=== PATIENT | female | born 1950 | race Caucasian/White ===

== ENCOUNTER 2019-11-29 12:26 | Inpatient (IN) | payer MEDICARE ==
[~2019-11-29] VITALS: Ht 167.7 cm; Wt 100.4 kg
[2019-11-29] MEDS ORDERED: ACETAMINOPHEN 500 MG TAB (TYLENOL) PO PRN (12:30)
[2019-11-29] MEDS ORDERED: ALPRAZolam 0.25 MG (XANAX) TAB PO PRN (12:30)
[2019-11-29] MEDS ORDERED: LACTULOSE SYRUP 10GM/15ML (ENULOSE) 30ML UDC PO PRN (12:30)
[2019-11-29] MEDS ORDERED: diphenhydrAMINE 25 MG TAB (BENADRYL) PO PRN (12:30)
[2019-11-29] MEDS ORDERED: BISACODYL 10 MG SUPP (DULCOLAX) PR PRN (12:30)
[2019-11-29] MEDS ORDERED: ONDANSETRON 4 MG (ZOFRAN) ORAL DISSOLVE TAB PO PRN (12:30)
[2019-11-29] MEDS ORDERED: DOCUSATE SODIUM 100 MG (COLACE) CAP PO PRN (12:30)
[2019-11-29] MEDS ORDERED: guaiFENesin/CODEINE (ROBITUSSIN AC) 10ML UDC PO PRN (12:30)
[2019-11-29] MEDS ORDERED: FLEET ENEMA ADULT 1 EA BTL PR PRN (12:30)
[2019-11-29] MEDS ORDERED: CALCIUM CARBONATE 500 MG (TUMS) TAB.CHEW PO PRN (12:30)
[2019-11-29] MEDS ORDERED: LOPERAMIDE 2 MG (IMODIUM) TABLET PO PRN (12:30)
--- NOTE | 2019-11-29 13:00 | NUR ---
SRIKANTH NORIEGA admitted to room 228-1, with an admitting diagnosis of CVA, on 11/29/19 from [place] [facility] via PRIVATE VEHICLE, accompanied by FAMILY. SRIKANTH NORIEGA introduced to surroundings, call light, bed controls, phone, TV, temperature control, lights, meal times, smoking policy, visitor policy, side rail policy, bathrooms and showers. Patient Rights given to patient in the handbook. SRIKANTH NORIEGA verbalizes understanding that [facility] is not responsible for the loss or damage to any personal effects or valuables that are kept in the patient's possession during their hospitalization. The following Patient Care Plans were discussed with the PATIENT: Discharge Planning, ALTERED CEREBRAL TISSUE PERFUSION, INEFFECTIVE AIRWAY CLEARANCE, IMPAIRED MOBILITY, UNILATERAL NEGLECT, SELF CARE DEFICIT, IMPAIRED COMMUNICATION, HIGH RISK: ASPIRATION, KNOWLEDGE DEFICIT: CVA, and DYSPHAGIA. SRIKANTH NORIEGA verbalizes understanding of Interdisciplinary Patient Education. Patient received Patient Rights Booklet, which includes Privacy Act Statement and Data Collection Information Summary.
[2019-11-29] MEDS ORDERED: SOTA80TA62 PO (13:18)
[2019-11-29] MEDS ORDERED: ATOR40TA70 PO (13:18)
[2019-11-29] MEDS ORDERED: ASPI-1238 PO (13:18)
[2019-11-29] MEDS ORDERED: OMEG1CAP24 PO (13:18)
[2019-11-29] MEDS ORDERED: VIT1CAPS46 PO (13:18)
[2019-11-29] MEDS ORDERED: LISI10TA2 PO (13:18)
[2019-11-29 14:58] VITALS: BP 154/63
--- NOTE | 2019-11-29 15:02 | Physical Therapy Evaluation ---
PT Evaluation-General Medical Diagnosis Admission Date Nov 29, 2019 at 13:13 Medical Diagnosis: CVA Onset Date: Nov 22, 2019 Therapy Diagnosis Therapy Diagnosis: Impaired mobility, balance , endurance. Weight Bear Status Full Weight Bearing Full Weight Bearing Referral Physician: Zoraida Hong DO Reason for Referral: Evaluation/Treatment Medical History Additional Medical History PMH: PAF, acute ischemic stroke, HTN, RA PSH: Breast reduction surgery(1998), Broken leg with karli placement(2000) Reviewed History: Yes Social History Home: Multilevel (bed, bath, and kitchen on main floor) Current Living Status: Spouse PT Steps Into Home: 2 Unclear on amount of stair inside home. Possible walk out basement in home, but pt does not access basement on regular basis. Prior Prior Level of Function SCALE: Activities may be completed with or without assistive devices. 2-Lfoglzenym-tcyzppk completes the activity by him/herself with no assistance from a helper. 5-Set-up or Clean-up Assistance-helper sets up or cleans up; patient completes activity. [place] assists only prior to or following the activity. 4-Supervision or Touching Assistance-helper provides verbal cues and/or touching/steadying and/or contact guard assistance as patient completes activity. Assistance may be provided throughout the activity or intermittently. 3-Partial/Moderate Assistance-helper does LESS THAN HALF the effort. [place] lifts, holds or supports trunk or limbs, but provides less than half the effort. 2-Substantial/Maximal Assistance-helper does MORE THAN HALF the effort. [place] lifts or holds trunk or limbs and provides more than half the effort. 4-Vtxsjjifa-ghofaq does ALL the effort. Patient does none of the effort to complete the activity. Or, the assistance of 2 or more helpers is required for the patient to complete the activity. If activity was not attempted, code reason: 7-Patient Refused. 9-Not Applicable-not attempted and the patient did not perform the activity before the current illness, exacerbation or injury. 10-Not Attempted due to Environmental Limitations-(lack of equipment, weather restraints, etc.). 88-Not Attempted due to Medical Conditions or Safety Concerns. Bed Mobility: 6 Transfers (B,C,W/C): 6 Gait: 6 Stairs: 6 Wheelchair Mobility: 9 Indoor Mobility (Ambulation): Independent Stairs: Independent Prior Devices Use: None PT Evaluation-Current Subjective Pt present upright in recliner in room. Pt agrees to PT. Pt reports no pain. Pt/Family Goals Return to home Objective Patient Orientation: Person, Unable to Assess (aphasia), Eyes Open, [place] ROM/Strength ROM Lower Extremities WFL Strength Lower Extremities Gross B LE 5/5 except for left hip flexion (4/5) Sensory Vision: Functional Hearing: Functional Sensation Right Lower Extremit: Intact Sensation Left Lower Extremity: Intact Sensation Lower Extremities Pt reports feeling light touch B L2-S2. Transfers Roll Left to Right (QC): 6 Sit to Lying (QC): 6 Lying to Sitting/Side of Bed(Q: 6 Sit to Stand (QC): 6 Chair/Xwa-oa-Cbhik Xfer(QC): 6 Toilet Transfer (QC): 6 Car Transfer (QC): 4 Gait Does the Patient Walk?: Yes Mode of Locomotion: Walk Anticipated Mode of Locomotion: Walk Walk 10 feet (QC): 6 Walk 50 ft with 2 Turns(QC): 6 Walk 150 ft (QC): 4 Walking 10ft/uneven surface-QC: 4 Gait Assistive Device: None Comments/Gait Description Pt able to walk without AD or LOB. Pt given verbal cues on directions as where to go. Wheelchair Training Does the Pt Use a Wheelchair?: No Wheel 50 ft with 2 turns (QC): 9 Wheel 150 ft (QC): 9 Stairs #of Steps: 4 1 Step (curb) (QC): 4 4 Steps (QC): 4 12 Steps (QC): 88 Balance Sitting Static: Normal Sitting Dynamic: Normal Standing Static: Normal Standing Dynamic: Good Picking up an Object (QC): 4 Treatment Co-treated with OT due to limitation in balance, endurance, coordinating UE and LE movements, and communication, to work on balance activities while also working on another activity involving critical thinking and digital manipulatio n. Standing marches x20; dynamic standing with balloon taps; static standing with cognitive games. Garcia Balance Scale score 54/56. Assessment/Needs Pt limited in dynamic balance. Pt acts with impulse before listening for full directions. Pt struggles with communicating responses but seems to understand most directions. Rehab Potential: Fair PT Short Term Goals Short Term Goals Time Frame: Dec 06, 2019 Roll Left & Right: 6 Sit to lyin Lying to sitting on side of be: 6 Sit to stand: 6 Chair/esk-jz-rkaps transfer: 6 Toilet transfer: 6 Car transfer: 5 Walk 10 feet: 5 Walk 50 feet with two turns: 5 Walk 150 feet: 5 1 step (curb): 5 4 steps: 5 PT Heat Treat Inspector Goals Prison Goals PT Prison Goals Time Frame: Dec 13, 2019 Roll Left & Right (QC): 6 Sit to Lying (QC): 6 Lying-Sitting on Side/Bed(QC): 6 Sit to Stand (QC): 6 Chair/Rrb-xg-Pmqep Xfer(QC): 6 Toilet Transfer (QC): 6 Car Transfer (QC): 6 Does the Patient Walk: Yes Walk 10 feet (QC): 6 Walk 50ft with 2 Turns (QC): 6 Walk 150 ft (QC): 6 Walking 10ft on Uneven Surface: 6 1 Step (curb) (QC): 6 4 Steps (QC): 6 12 Steps (QC): 6 Picking up an Object (QC): 6 Does the Pt use WC or Scooter?: No Wheel 50 feet with 2 turns (QC: 9 Wheel 150 feet: 9 PT Plan Problem List Problem List: Activity Tolerance, Functional Strength, Safety, Balance, Gait, Transfer, ROM Treatment/Plan Treatment Plan: Continue Plan of Care Treatment Plan: Education, Functional Activity [place], Functional Strength, Gait, Safety, Therapeutic Exercise, Transfers Treatment Duration: Dec 13, 2019 Frequency: At least 5 of 7 days/Wk (IRF) Estimated Hrs Per Day: 1 hour per day Patient and/or Family Agrees t: Yes Safety Risks/Education Patient Education: Gait Training, Transfer Techniques, Steps, Correct Positioning, Safety Issues Teaching Recipient: Patient Teaching Methods: Demonstration, Discussion Response to Teaching: Reinforcement Needed Discharge Recommendations Plan LE strengthening and endurance to prevent atrophy; Balance training Therapy Discharge Recommendati: Home & Family Time/GCodes Time In: 1345 Time Out: 1310 Total Billed Treatment Time: 75 Total Billed Treatment 1 visit EVM 15' FA 15' NM 45' PT eval from [id number], OT eval from [id number], co-treat from [id number] BRIANNA STATON PT Nov 29, 2019 15:02
--- NOTE | 2019-11-29 15:15 | Occupational Therapy Eval ---
OT Evaluation-General/PLF Medical Diagnosis Admission Date Nov 29, 2019 at 13:13 Medical Diagnosis: CVA Onset Date: Nov 22, 2019 Therapy Diagnosis Therapy Diagnosis: Expressive/receptive aphasia Precautions Precautions/Isolations: Fall Prevention, Standard Precautions Referral Physician: Dr. Hong Referral Reason: Activity Tolerance, Self Care, Evaluation/Treatment, Strengthening/ROM Medical History Pertinent Medical History: HTN, Rheumatoid Arthritis Additional Medical History CTR, Breast reduction Current History Pt. sustained CVA. All right sided weakness resolved, but pt. has difficulty with speech. Reviewed History: Yes Social History Home: Single Level Current Living Status: Spouse Entry Into Home: Stairs With Railing Steps Into Home: 2 ADL-Prior Level of Function SCALE: Activities may be completed with or without assistive devices. 6-Uiunknxhga-kcyzver completes the activity by him/herself with no assistance from a helper. 5-Set-up or Clean-up Assistance-helper sets up or cleans up; patient completes activity. [place] assists only prior to or following the activity. 4-Supervision or Touching Assistance-helper provides verbal cues and/or touching/steadying and/or contact guard assistance as patient completes activity. Assistance may be provided throughout the activity or intermittently. 3-Partial/Moderate Assistance-helper does LESS THAN HALF the effort. [place] lifts, holds or supports trunk or limbs, but provides less than half the effort. 2-Substantial/Maximal Assistance-helper does MORE THAN HALF the effort. [place] lifts or holds trunk or limbs and provides more than half the effort. 1-Hcrpycgtf-sfnska does ALL the effort. Patient does none of the effort to complete the activity. Or, the assistance of 2 or more helpers is required for the patient to complete the activity. If activity was not attempted, code reason: 7-Patient Refused. 9-Not Applicable-not attempted and the patient did not perform the activity before the current illness, exacerbation or injury. 10-Not Attempted due to Environmental Limitations-(lack of equipment, weather restraints, etc.). 88-Not Attempted due to Medical Conditions or Safety Concerns. ADL PLOF Comments Pt. was fully independent with daily tasks prior to this CVA/hospitalization. Self Care: Independent Functional Cognition: Independent DME/Equipment: Bath Chair, Shower Occupation: Paraprofessional Drive Self: Yes OT Current Status Subjective No pain reported. Appearance Pt. alert and agrees to participate in therapy. Mental Status/Objective Patient Orientation: Unable to Assess Current Upper Extremity ROM WFL Upper Extremity Strength 4/5 bilateral UE strength throughout. ADL-Treatment Eating (QC): 88 Oral Hygiene (QC): 5 (Already performed per pt.) Shower/Bathe Self (QC): 7 Upper Body Dressing (QC): 5 (Per pt. report) Lower Body Dressing (QC): 4 (Per pt. report.) On/Off Footwear (QC): 6 Toileting Hygiene (QC): 7 Other Treatments Pt. seen for partial co-treatment with PT due to need of two skilled therapists. PT worked on balance and standing endurance, while OT facilitated and challenged pt. with problem solving/visual spatial task. Pt. demonstrated good balance and standing endurance. Had great difficulty however with cognitive and language tasks. Attempted to categorize and summarize specific words by coming up with a word that fit into that category. Pt. unable to do this. OT encouraged pt. to quickly come up with word to summarize each category, and pt. unable to do. Pt. also only aware approximately 50% of time that she was not saying the correct word or category. 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 Pt. attempts to communicate this, but is unable to. 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 Poor awareness at times with communication abilities. Other times, she is aware that she can't process the correct word. Completed visual perceptual task standing with putting specific shaped pieces into matching holes. Pt able to do this with no difficulty approximately 75% of time. In the end, pt. able to place each shape, but would often pick it up multiple times, look over the board, and then put it down. Ambulated back to room with SBA. All needs met in room. Education OT Patient Education: Correct positioning, Energy conservation, Exercise program, Modified ADL techniques, Progress toward Goal/Update tx plan, Purpose of tx/functional activities, Reviewed precautions, Rehab process, Transfer techniques Teaching Recipient: Patient, Family Teaching Methods: Demonstration, Discussion Response to Teaching: Reinforcement Needed OT Half-Way Goals Half-Way Goals Time Frame: Dec 13, 2019 Eating (QC): 6 Oral Hygiene (QC): 6 Toileting Hygiene (QC): 6 Shower/Bathe Self (QC): 6 Upper Body Dressing (QC): 6 Lower Body Dressing (QC): 6 On/Off Footwear (QC): 6 Additional Goals: 1-Demonstrate ADL Tasks, 2-Verbalize Understanding, 3- ImproveStrength/[place] 1=Demonstrate adherence to instructed precautions during ADL tasks. 2=Patient will verbalize/demonstrate understanding of assistive devices/modif ications for ADL. 3=Patient will improve strength/tolerance for activity to enable patient to perform ADL's. OT Education/Plan Problem List/Assessment Assessment: Decreased Activ Tolerance, Impaired Cognition, Impaired I ADL's, Impaired Self-Care Skills Discharge Recommendations Plan/Recommendations: Continue POC Therapy Discharge Recommendati: Home & Family, Post Acute OT Treatment Plan/Plan of Care Treatment,Training & Education: Yes Patient would benefit from OT for education, treatment and training to promote independence in ADL's, mobility, safety and/or upper extremity function for ADL's. Plan of Care: ADL Retraining, Cognitive Retraining, Functional Mobility Treatment Duration: Dec 13, 2019 Frequency: At least 5 of 7 days/Wk (IRF) Estimated Hrs Per Day: 1.5 hours per day Agreement: Yes Rehab Potential: Good Time/GCodes Start Time: 14:00 Stop Time: 15:15 Total Time Billed (hr/min): 75 Billed Treatment Time 6877-0681 1, EVM x 10minutes [id number] ADL x 20minutes, FA x 40minutes ([id number] co-treat with PT. Please see above note for designated roles.) QUYEN WEINSTEIN OT Nov 29, 2019 15:15
--- NOTE | 2019-11-29 15:46 | ST Cognitive Linguistic Eval ---
Speech Evaluation-General Medical Diagnosis CVA Onset Date: Nov 22, 2019 Therapy Diagnosis Therapy Diagnosis: Cognitive-communication, Expressive-receptive aphasia Precautions Precautions: Fall Precautions/Isolations: Fall Prevention, Standard Precautions Referral Referring Physician: Dr. Hong Medical History Pertinent Medical History: HTN, Rheumatoid Arthritis Reviewed History: Yes Social History Current Living Status: Spouse Speech PLF-Current Status Prior Level of Function Patient lived at home with her of 50 years. Patient was independent for her daily needs. Subjective Patient was pleasant and cooperative with the cognitive assessment. Language Eval: Auditory Comprehends Simple Yes/No Ques: Functional Indent/Objects Multiple [place]: Functional Ident/Pics in Multiple [place]: Functional Follows 1-Step Commands: Functional Follows Complex Directions: Mild Follows General Conversations: Mild Language Eval: Verbal Language Completes Spontaneous Greeting: Mild Produces Auto, Serial Info: Functional Imitates Simple Words/Phrases: Functional Word Finding: Moderate Requests Basic Needs: Moderate States Basic Personal Info: Moderate Expresses Complex Ideas: Severe Objective Cognitive Domain Attention: WNL Memory: Mild Problem Solving: Mild Executive Functions: Mild Objective Formal/Standardized Tests Informal speech tasks, visual cues completed. Attempted to complete the SLUMS, however due to the severity of the expressive aphasia patient was unable to complete. Results Moderate cognitive deficits with moderate to severe expressive aphasia. Receptive aphasia is considered mild due to ability to follow directions and follow through given visual cues. Oral Motor/Speech Production Moderate to severe expressive aphasia. Speech production is grossly within normal range of function Impression Patient is a pleasant 69 y/o female who was admitted to the ARU s/p CVA. Patient was examined with various informal tasks. Patient's receptive aphasia is within the mild range of function. Expressive aphasia is within moderate to severe level of function depending on the task. Patient exhibits a "nervous" type laugh with all expressive tasks. She was also noted to be heavily dependent on her for assistance with answering questions. Patient will receive skilled ST with focus on improving expressive skills for better communication. Speech Patient Assess Expression of Ideas/Wants: Rarely/Never (1) Understanding Verbal Content: Usually Understands (3) Brief Interview-Mental Status: Yes Repetition of Three Words: One (1) Temporal Orientation: Year: No answer (0) Temporal Orientation: Month: No answer (0) Temporal Orientation: Day: Incorrect or No Answer(0) Recall : Wear to say "Sock": No, could not recall (0) Recall : Color: No, could not recall (0) Recall : Bed: No, could not recall (0) Memory/Recall Ability: Current season, That he or she is in a hsp/hsp unit Speech Short Term Goals Short Term Goals Short Term Goals 1) Patient will complete memory tasks related to her daily needs at 80% or greater with minimal cues. 2) Patient will complete problem solving tasks related to her daily needs at 80% or greater with minimal cues. 3) Patient will complete safety awareness tasks related to her daily needs at 80% or greater with minimal cues. 4) Patient will complete confrontational naming tasks at 80% or greater with minimal cues. Speech Mcc Goals Mcc Goals Patient will improve her cognitive-communication skills in order to communicate her wants/needs effectively. Speech-Plan Patient/Family Goals Patient/Family Goals: Patient plans on returning to her home where she lives with her . Treatment Plan Speech Therapy Treatment Plan: Continue Plan of Care Treatment Duration: Dec 15, 2019 Frequency: 4 times per week Estimated Hrs Per Day: .5 hour per day Rehab Potential: Fair Barriers to Learning: New CVA Pt/Family Agrees to Plan: Yes Safety Risks/Education Teaching Recipient: Patient, Significant Other Teaching Methods: Discussion Response to Teaching: Verbalize Understanding (Patient will receive skilled ST 4-5x per week) Education Topics Provided: Safety within her room Time Speech Therapy Time In: 13:00 Speech Therapy Time Out: 13:30 Total Billed Time: 30 Billed Treatment Time 1, JASVIR PEÑALOZA BETHAN[address] ST Nov 29, 2019 15:46
[2019-11-29 17:00] VITALS: BP 151/67
--- NOTE | 2019-11-29 18:22 | Progress Note ---
YONNY JESSICA MED STUDENT 11/29/19 1822: Progress Note H&P: CC: CVA, expressive/receptive aphasia HPI: Anna is a 69yo female presenting to IRF for rehab post-CVA. Last Friday11/22/2019, she was with her at her [employer] football game in [place] when her noticed R facial drooping and loss of speech. She was taken by EMS to [facility] where she was given tPA in the ER and transferred to the ICU. The next day she was found to have Afib and an MRI performed showing changes consistent with acute L frontal lobe infarct. Her hospital course was uneventful and she was transferred here for rehab post-CVA. PMH: PAF, acute ischemic stroke, HTN, RA PSH: Breast reduction surgery(1998), Broken leg with karli placement(2000) Meds: * Aspirin 81mg QD * Atorvastatin 40mg QD * Fish oil 300mg QD * Lisinopril 20mg QD * Sotalol 40mg QD * Neil/VitD3 in cod liver oil QD * HCTZ dose unknown QD, Allergies: * Clindamycin(did not feel like self) * Sulfa(N/V) FH: Father(CAD, stroke, of [place]@74), Mother(CAD, stroke, @88yo), brother is healthy, sister(stroke r/t lifestyle), son and daughter are healthy. SH: Denies tobacco/alcohol/recreational drug use. Retired, lives with in [place]. 2 children; son(43yo) and a daughter(46yo) ROS: denies CP, SOB, N/V/D, numbness/tingling, dysuria General: Pt is sitting up in chair, pleasant, awake/alert, NAD, well dressed/ well nourished. Unreliable historian r/t aphasia; is present and is the primary historian. HEENT: * Head: normocephalic, atraumatic * Eyes: PERRLA, EOMI * Ears: nontender, no erythema * Nose: Nares patent bilaterally, septum midline, pink mucosa * Throat: pink, moist mucosa. no lesions CV: * RRR, no rubs/murmurs/gallops, no JVD, no edema Respiratory: * Lungs CTAB, no accessory muscle use Abd: * BS normoactive x4, nontender, soft Neuro: * A&Ox1 to self, disoriented to place, time, situation * Speech is clear, provides short one-two word answers * Pt is able to understand certain questions and give appropriate responses, while not being able to understand others. * CN II-: intact * CN VII: no facial droop noted * CN VIII: unable to assess; pt unable to understand vs hearing loss * CN IX-XII: intact * DTR's: +2/4 x4 extremities * Sensation intact x4 extremities MSK: * Strength +5/5 x4 extremities * Full ROM x4 extremities * No tenderness noted Skin: * Warm, dry, intact * Areas of ecchymosis on arms bilaterally Lymphatic: * No lymphadenopathy Assessment: * Expressive/receptive aphasia * HTN * Paroxysmal Afib * Constipation Plan: * Monitor VS/labs/Afib recurrence * PT/OT/ST assessment * Bowel regimen for constipation ZORAIDA EVANS DO 11/30/19 0519: Supervisory-Addendum Brief Verification & Attestation Participated in pt care: history, MDM, physical Personally performed: exam, history, MDM, supervision of care Care discussed with: Medical Student Procedures: n/a Results interpretation: Verified all documentation Verification and Attestation of Medical Student E/M Service A medical student performed and documented this service in my presence. I reviewed and verified all information documented by the medical student and made modifications to such information, when appropriate. I personally performed the physical exam and medical decision making. Zoraida Evans Nov 30, 2019,05:17 YONNY JESSICA MED STUDENT Nov 29, 2019 18:22 ZORAIDA EVANS DO Nov 30, 2019 05:19
--- NOTE | 2019-11-29 19:24 | NUR ---
bedside report received from MARGARITA POWERS, assume care of pt
[2019-11-29] MEDS: polyethylene glycoL POWDER 17 GM (MIRALAX) PACK PO SCH (20:35)
[2019-11-29] MEDS: DOCUSATE SODIUM 100 MG (COLACE) CAP PO SCH (20:35)
--- NOTE | 2019-11-29 20:35 | NUR ---
pt took Colace & miralax, refused Senokot, had no difficulty swallowing pills, has difficulty expressing herself
[2019-11-29] MEDS: MELATONIN 3 MG TABLET PO PRN (20:38)
[2019-11-29] MEDS: SENNA W/DOCUSATE (SENOKOT S) TABLET PO SCH (20:39)
--- NOTE | 2019-11-29 21:13 | PM&R Post Admission Assessment ---
PM&R HP Date of Visit: Nov 29, 2019 Time of Visit: 19:00 History of Present Illness CC: CVA w/expressive and receptive aphasia HPI: HPI: This is a 69yoWF clinic pt of Dr. Headley who presents to inpatient rehab after suffering an acute ischemic stroke with residual expressive and receptive aphasia s/p TPA thrombolytic given. Pt also has a history of HTN and AF. Her prior level of functioning was independent without device and her current level of functioning is supervision with bed mobility, transfer and ambulation 800 feet, needs help with ADLs and speech therapy. The plan is to DC home with spouse. YONNY JESSICA MED STUDENT YONNY JESSICA STUDENT 11/29/19 182: Progress Note H&P: CC: CVA, expressive/receptive aphasia HPI: Anna is a 69yo female presenting to IRF for rehab post-CVA. Last Friday11/22/2019, she was with her at her [employer] football game in [place] when her noticed R facial drooping and loss of speech. She was taken by EMS to [facility] where she was given tPA in the ER and transferred to the ICU. The next day she was found to have Afib and an MRI performed showing changes consistent with acute L frontal lobe infarct. Her hospital course was uneventful and she was transferred here for rehab post-CVA. PMH: PAF, acute ischemic stroke, HTN, RA PSH: Breast reduction surgery(1998), Broken leg with karli placement(2000) Meds: * Aspirin 81mg QD * Atorvastatin 40mg QD * Fish oil 300mg QD * Lisinopril 20mg QD * Sotalol 40mg QD * Neil/VitD3 in cod liver oil QD * HCTZ dose unknown QD, Allergies: * Clindamycin(did not feel like self) * Sulfa(N/V) FH: Father(CAD, stroke, of [place]@74), Mother(CAD, stroke, @88yo), brother is healthy, sister(stroke r/t lifestyle), son and daughter are healthy. SH: Denies tobacco/alcohol/recreational drug use. Retired, lives with in [place]. 2 children; son(43yo) and a daughter(46yo) ROS: denies CP, SOB, N/V/D, numbness/tingling, dysuria General: Pt is sitting up in chair, pleasant, awake/alert, NAD, well dressed/well nourished. Unreliable historian r/t aphasia; is present and is the primary historian. HEENT: * Head: normocephalic, atraumatic * Eyes: PERRLA, EOMI * Ears: nontender, no erythema * Nose: Nares patent bilaterally, septum midline, pink mucosa * Throat: pink, moist mucosa. no lesions CV: * RRR, no rubs/murmurs/gallops, no JVD, no edema Respiratory: * Lungs CTAB, no accessory muscle use Abd: * BS normoactive x4, nontender, soft Neuro: * A&Ox1 to self, disoriented to place, time, situation * Speech is clear, provides short one-two word answers * Pt is able to understand certain questions and give appropriate responses, while not being able to understand others. * CN II-: intact * CN VII: no facial droop noted * CN VIII: unable to assess; pt unable to understand vs hearing loss * CN IX-XII: intact * DTR's: +2/4 x4 extremities * Sensation intact x4 extremities MSK: * Strength +5/5 x4 extremities * Full ROM x4 extremities * No tenderness noted Skin: * Warm, dry, intact * Areas of ecchymosis on arms bilaterally Lymphatic: * No lymphadenopathy Assessment: * Expressive/receptive aphasia * HTN * Paroxysmal Afib * Constipation Plan: * Monitor VS/labs/Afib recurrence * PT/OT/ST assessment * Bowel regimen for constipation ZORAIDA EVANS DO 11/30/19 0519: Supervisory-Addendum Brief Verification & Attestation Participated in pt care: history, MDM, physical Personally performed: exam, history, MDM, supervision of care Care discussed with: Medical Student Procedures: n/a Results interpretation: Verified all documentation Verification and Attestation of Medical Student E/M Service A medical student performed and documented this service in my presence. I reviewed and verified all information documented by the medical student and made modifications to such information, when appropriate. I personally performed the physical exam and medical decision making. Zoraida Evans, Nov 30, 2019,05:17 YONNY JESSICA MED STUDENT Past Apdkoey-Zsgmit-Gyhboe Hx Past Med/Social Hx: Reviewed Nursing Past Med/Soc Hx, Reviewed and Corrections made Patient Social History Marrital Status: Employed/Student: retired Alcohol Use: Denies Use Recreational Drug Use: No Smoking Status: Never a Smoker Physical Abuse Screen: No Sexual Abuse: No Recent Foreign Travel: No Contact w/other who traveled: No Recent Hopitalizations: No Recent Infectious Disease Expo: No Immunizations Up To Date Pediatric: Yes Date of Pneumonia Vaccine: Jan 28, 2019 Seasonal Allergies Seasonal Allergies: No Past Medical History Surgeries: Breast, Orthopedic Cardiac: Atrial Fibrillation (new dx 11/22/19), High Cholesterol, Hypertension Neurological: Stroke (11/22/19 s/p tPa) Musculoskeletal: Rheumatoid Arthritis HEENT: Cataract, Eye Injury Hearing Impairment: Hard of Hearing History of Blood Disorders: No Adverse Reaction to Blood Jarrell: No Family History Completed stroke 19 FATHER 19 MOTHER Hypertension G8 BROTHER Myocardial infarction 19 FATHER 19 MOTHER Prior Level of Function Bed Mobility: 6 Transfers: 6 Gait: 6 Stairs: 6 Wheelchair Mobility: 9 Indoor Mobility (Ambulation): Independent Stairs: Independent Prior Devices Use: None Self Care: Independent Functional Cognition: Independent Occupation: Paraprofessional Drive Self: Yes Current Level of Fuctioning Roll Left to Right: 6 Sit to Lyin Lying to Sitting/Side of Bed: 6 Sit to Stand: 6 Chair/Vad-so-Lmfoh Xfer: 6 Car Transfer: 4 Does the Patient Walk: Yes Mode of Locomotion: Walk Anticipated Mode of Locomotion: Walk Walk 10 feet: 6 Walk 50 ft with 2 Turns: 6 Walk 150 ft: 4 Walking 10ft on uneven surface: 4 Gait Assistive Device: None Does the Pt Use a Wheelchair: No Wheel 50 ft with 2 turns: 9 Wheel 150 ft: 9 #of Steps: 4 1 Step (curb): 4 4 Steps: 4 12 Steps: 88 Picking up an Object: 4 Eatin Oral Hygiene: 5 (Already performed per pt.) Shower/Bathe Self: 7 Upper Body Dressin (Per pt. report) Lower Body Dressin (Per pt. report.) On/Off Footwear: 6 Toileting Hygiene: 7 PM&R Allergy/Meds/Data Review Allergies Coded Allergies: Sulfa (Sulfonamide Antibiotics) (Verified Allergy, Unknown, 11/29/19) clindamycin (Verified Allergy, Unknown, 11/29/19) Home Medications Scheduled Aspirin (Aspirin EC), 81 MG PO DAILY, (Reported) Atorvastatin Calcium (Atorvastatin Calcium), 40 MG PO DAILY, (Reported) Lisinopril (Lisinopril), 10 MG PO DAILY, (Reported) [place]-3 Fatty Acids/Fish Oil ([place] 3 Fish Oil Softgel), 1 EACH PO DAILY, (Reported) Sotalol HCl (Sotalol), 40 MG PO DAILY, (Reported) Vit A & D3 in Cod Liver Oil (Cod Liver Oil Softgel), 1 EACH PO DAILY, (Reported) Current Medications Current Medications Reviewed Review of Systems Constitutional: see HPI, dizziness, malaise, weakness EENTM: no symptoms reported Respiratory: no symptoms reported Cardiovascular: no symptoms reported Gastrointestinal: no symptoms reported Genitourinary: no symptoms reported Musculoskeletal: no symptoms reported Skin: no symptoms reported Psychiatric/Neurological: Weakness, Other (speech difficulties) All Other Systems Reviewed Negative Unless Noted: Yes Physical Exam Physical Exam Vital Signs Vital Signs - First Documented 11/29/19 11/29/19 14:58 17:00 Temp 36.2 Pulse 60 Resp 18 B/P (MAP) 154/63 Pulse Ox 97 O2 Delivery Room Air Capillary Refill : Height, Weight, BMI Height: '" Weight: lbs. oz. kg; 34.56 BMI Method: General Appearance: No Apparent Distress, WD/WN, Chronically ill, Obese Eyes: Bilateral Eye Normal Inspection, Bilateral Eye PERRL HEENT: PERRL/EOMI, Normal ENT Inspection, Pharynx Normal Neck: Full Range of Motion, Normal Inspection, Non Tender, Supple, Carotid Bruit Respiratory: Chest Non Tender, Lungs Clear, Normal Breath Sounds, No Accessory Muscle Use, No Respiratory Distress Cardiovascular: Regular Rate, Rhythm, No Edema, No Gallop, No JVD, No Murmur, Normal Peripheral Pulses Gastrointestinal: Normal Bowel Sounds, No Organomegaly, No Pulsatile Mass, Non Tender, Soft Back: Normal Inspection, No CVA Tenderness, No Vertebral Tenderness Extremity: Normal Capillary Refill, Normal Inspection, Normal Range of Motion, Non Tender, No Calf Tenderness, No Pedal Edema Neurologic/Psychiatric: Alert, Oriented x3, No Motor/Sensory Deficits, Normal Mood/Affect, bottler II-XII Norm as Tested, Abnormal Gait, Aphasia (partial with receptive aphasia), Motor Weakness (generalized lower legs) Skin: Normal Color, Warm/Dry Lymphatic: No Adenopathy PM&R Medical Assessment & Plan REHAB/MEDICAL ASSESSMENT AND PLAN: REHAB IMPAIRMENT GROUP: CVA ETIOLOGIC DIAGNOSIS: CVA The comorbidities that impact the patients function and/or functional outcome by: new AF, severe aphasia with receptive aphasia REHAB PLAN: The patient is being admitted to our comprehensive inpatient rehabilitation facility and can tolerate the intensity of service consisting of at least: 180 minutes of therapy a day, 5 out of 7 days a week Rehab treatment will consist of: PT will focus on regaining ambulatory skills, OT will focus on regaining ADL capability and ST will work on aphasia and cognition The patient/family has a good understanding of our discharge process and will benefit from an interdisciplinary inpatient rehabilitation program. The patient has potential to make improvement and is in need of at least two of the following multidisciplinary therapies including but not limited to physical, occupational, speech, and prosthetics and orthotics. Additionally the patient will need services from respiratory, nutritional services, wound care, psychology, etc. (Customize this to each patient). Given the patients complex c ondition and risk of further medical complications, rehabilitation services cannot be safely or effectively provided at a lower level of care such as a fci facility. BARRIERS TO DISCHARGE: Severe aphasia ESTIMATED LOS: 7 days DISPOSITION: Home RELEVANT CHANGES SINCE PREADMISSION SCREENING: I have compared the patients medical and functional status at the time of the preadmission screening and there are: no changes PROGNOSIS: Fair REHABILITATION GOALS: 1. PT will focus on regaining ambulatory skills, OT will focus on regaining ADL capability and ST will work on aphasia and cognition All the above goals were reviewed with the patient and he/she is in agreement. By signing this document, I acknowledge that I have personally performed a full physical examination on this patient within 24 hours of admission to this inpatient rehabilitation facility and have determined the patient to be able to tolerate the above course of treatment at an intensive level for a reasonable period of time. I will be completing a detailed individualized Plan of Care for this patient by day #4 of the patients stay based upon the Preadmission Screen, the Post-Admission Evaluation, and the therapy evaluations. Admission Dx/Comorbidities: (1) CVA (cerebral vascular accident) ICD Codes: I63.9 - Cerebral infarction, unspecified (2) Atrial fibrillation ICD Codes: I48.91 - Unspecified atrial fibrillation (3) Hypertension ICD Codes: I10 - Essential (primary) hypertension (4) Hyperlipemia ICD Codes: E78.5 - Hyperlipidemia, unspecified (5) Aphasia ICD Codes: R47.01 - Aphasia (6) Receptive aphasia ICD Codes: R47.01 - Aphasia (7) Confusion ICD Codes: R41.0 - Disorientation, unspecified (8) Presbycusis of both ears ICD Codes: H91.13 - Presbycusis, bilateral (9) Risk for falls ICD Codes: Z91.81 - History of falling (10) Received intravenous tissue plasminogen activator (tPA) in emergency department ICD Codes: Z92.82 - Status post administration of tPA (rtPA) in a different facility within the last 24 hours prior to admission to current facility Assessment/Plan Assessment and Plan Assess & Plan/Chief Complaint Assessment: CVA w/aphasia and receptive aphasia New onset AF s/p tPA 11/22/19 no OAC until 12/06/19 HTN HLP Obesity [place] Plan: IRF protocol ASA Statin Monitor closely ZORAIDA EVANS DO Nov 29, 2019 21:13
[2019-11-30 05:08] VITALS: BP 157/69
[2019-11-30 05:09] VITALS: BP 157/69
[2019-11-30 05:36] LABS: BASOPHILS % (AUTO) 0 % (0-10); EOSINOPHILS # (AUTO) 0.2 10^3/uL (0.0-0.3); EOSINOPHILS % (AUTO) 4 % (0-10); HEMATOCRIT 36 % (35-52); HEMOGLOBIN 12.6 G/DL (11.5-16.0); LYMPHOCYTES # (AUTO) 1.3 X 10^3 (1.0-4.0); LYMPHOCYTES % (AUTO) 25 % (12-44); MEAN CORPUSCULAR HEMOGLOBIN 32 PG (25-34); MEAN CORPUSCULAR HGB CONC 35 G/DL (32-36); MEAN CORPUSCULAR VOLUME 94 FL (80-99); MEAN PLATELET VOLUME 8.9 FL (7.4-10.4); MONOCYTES # (AUTO) 0.6 X 10^3 (0.0-1.0); MONOCYTES % (AUTO) 12 % (0-12); NEUTROPHILS # (AUTO) 3.1 X 10^3 (1.8-7.8); NEUTROPHILS % (AUTO) 59 % (42-75); PLATELET COUNT 229 10^3/uL (130-400); WHITE BLOOD COUNT 5.3 10^3/uL (4.3-11.0)
[2019-11-30 06:13] LABS: ALBUMIN 3.7 GM/DL (3.2-4.5); CHLORIDE 108 MMOL/L (98-107); POTASSIUM 3.6 MMOL/L (3.6-5.0); SODIUM 140 MMOL/L (135-145)
[2019-11-30 06:14] LABS: CALCIUM 8.9 MG/DL (8.5-10.1)
[2019-11-30 06:15] LABS: GLUCOSE 103 MG/DL (70-105); TOTAL PROTEIN 6.4 GM/DL (6.4-8.2)
[2019-11-30 06:16] LABS: CARBON DIOXIDE 22 MMOL/L (21-32)
[2019-11-30 06:17] LABS: BILIRUBIN,TOTAL 1.2 MG/DL (0.1-1.0)
[2019-11-30 06:19] LABS: ALKALINE PHOSPHATASE 60 U/L (40-136); CREATININE SERUM 0.78 MG/DL (0.60-1.30); GFR ESTIMATED > 60
[2019-11-30 06:20] LABS: BUN/CREATININE RATIO 27
[2019-11-30 06:22] LABS: ALANINE AMINOTRANSFERASE 18 U/L (0-55)
--- NOTE | 2019-11-30 08:41 | Individualized Plan of Care ---
Individualized Plan of Care Rehab Nursing IPOC Order Admission Date Nov 29, 2019 at 13:13 Current Orders Orders Admission Order(Inpt,Obs,Sdc) (11/29/19 12:30) Vital Signs: Per Unit Policy ( 08,16,00 (11/29/19 12:30) Piero Briseno 09,21 (11/29/19 12:30) Sequential Compression Device Q4H (11/29/19 12:30) Shaft Repairer-Inpt Rehab Con (11/29/19 12:30) Rehab Nursing Orders-Ipoc (11/29/19 12:30) Physical Therapy Rehab Orders (11/29/19 12:30) Occupational Therapy Rehab Ord (11/29/19 12:30) Speech Therapy Rehab Orders (11/29/19 12:30) Cbc With Automated Diff (11/30/19 06:00) Comprehensive Metabolic Panel (11/30/19 06:00) Intake & Output 06,14,22 (11/29/19 12:30) Precautions (Aru) (11/29/19 12:30) Weekly Weight WEEK (11/29/19 12:30) Rehab-Intensity Of Therapy (11/29/19 12:30) Initiate Admission Nursing Pro .admission (11/29/19 12:30) Acetaminophen Tablet (Tylenol Tablet) (11/29/19 12:30) Alprazolam Tablet (Xanax Tablet) (11/29/19 12:30) Calcium Carbonate Chew Tablet (Antacid C (11/29/19 12:30) Diphenhydramine Tablet (Benadryl Tablet) (11/29/19 12:30) Docusate Sodium Capsule (Colace Capsule) (11/29/19 21:00) Docusate Sodium Capsule (Colace Capsule) (11/29/19 12:30) Bisacodyl Suppository (Dulcolax Supposit (11/29/19 12:30) Lactulose Oral Solution (Enulose Oral So (11/29/19 12:30) Na Phos/Na Biphos Enema (Fleet Enema Afshin (11/29/19 12:30) Guaifenesin/Codeine Syrup (Robitussin Ac (11/29/19 12:30) Loperamide Tablet (Imodium Tablet) (11/29/19 12:30) Melatonin Tablet (Melatonin Tablet) (11/29/19 12:30) Polyethylene Glycol Powder Pkt (Miralax (11/29/19 21:00) Ondansetron Oral Dissolve Tab (Zofran (11/29/19 12:30) Senna S Tablet (Senokot S Tablet) (11/29/19 21:00) Heart Healthy (11/29/19 Lunch) Initiate Admission Nursing Pro .admission (11/29/19 12:30) Code/Resuscitation (11/29/19 12:30) Vte Contraindication (11/29/19 12:39) Admission Arrival Bed Request (11/29/19 13:02) Aspirin Enteric Coated Tablet (Ecotrin T (11/30/19 09:00) Atorvastatin Tablet (Lipitor) (11/30/19 09:00) Lisinopril Tablet (Zestril Tablet) (11/30/19 09:00) Sotalol Tablet (Betapace Tablet) (11/30/19 09:00) [place] 3 Capsule (Fish Oil Capsule) (11/30/19 09:00) (Nf) Vit A & D3 In Cod Liver Oil (Cod Li (11/30/19 09:00) Ekg Tracing (11/29/19 14:43) Consult Cardiology (11/29/19 14:43) Patient Visit (11/29/19 ) Speech Sound Lang Comp (11/29/19 ) Treat. Speech/Lang/Voice (11/29/19 ) Follow-Up Appointment (11/29/19 16:15) Ambulate 08,12,20 (11/29/19 17:25) Sequential Compression Device Q4H (11/29/19 17:25) Dvt/Vte Risk - Notifiy Physici Q4H (11/29/19 17:25) Vte Contraindication (11/29/19 18:07) Telemetry (11/30/19 09:00) Telemetry Nursing Assessment ( (11/30/19 09:00) Patient Visit (11/30/19 ) Gait Training, Ea 15 Min (11/30/19 ) Exercise Therap, Ea 15 Min (11/30/19 ) Functional Activities, Ea 15 (11/30/19 ) Patient Visit (11/30/19 ) Gait Training, Ea 15 Min (11/30/19 ) Functional Activities, Ea 15 (11/30/19 ) Amlodipine Tablet (Norvasc Tablet) (11/30/19 18:45) Lisinopril Tablet (Zestril Tablet) (11/30/19 18:45) Amlodipine Tablet (Norvasc Tablet) (11/30/19 18:40) Rehab Nursing Orders: Ongoing Assess. of Cognitive Status, Ongoing Assess. of Function Status, Bladder Management, Bladder Scan, Bladder Training, Bowel Management, Bowel Training, Disease Management & Educaiton, DVT Prophylaxis, Fall Prevention, Fluid/Electrolyte/Nutrition Mgmt, Infection Prevention, Medication Management & Education, Management of Risks & Complications, Nutrition Management, Pain Management, Patient/Family Support, Safety Management, Swallow Precautions Intensity of Therapy to be met Patient to be seen: Min.3h per day/5 of 7d PT IPOC Problem List: Activity Tolerance, Functional Strength, Safety, Balance, Gait, Transfer, ROM Treatment Plan: Continue Plan of Care Education, Functional Activity [place], Functional Strength, Gait, Safety, Therapeutic Exercise, Transfers Treatment Duration: Dec 13, 2019 Frequency: At least 5 of 7 days/Wk (IRF) Estimated Hrs Per Day: 1 hour per day OT IPOC Problems: Decreased Activ Tolerance, Impaired Cognition, Impaired I ADL's, Impaired Self-Care Skills OT Treatment, Training and Edu: Yes Plan of Care: ADL Retraining, Cognitive Retraining, Functional Mobility Treatment Duration: Dec 13, 2019 Frequency: At least 5 of 7 days/Wk (IRF) Estimated Hrs Per Day: 1.[address] IPOC Speech Therapy Treatment Plan: Continue Plan of Care Treatment Duration: Dec 15, 2019 Frequency: 4 times per week Estimated Hrs Per Day: .5 hour per day Shaft Repairer/Case Mgmt Shaft Repairer/Case Managemen: Discharge Planning Dietitian/Quality Coordinator Dietitian/Quality Coordinator to monitor nutritional status and make changes and/or recommendations as needed and work with speech pathology on dietary upgrades as the occur. Physician IPOC Medical Issues being managed closely and that require the 24 hour availability of a physician: Recent new onset AF source of catastrophic CVA will require close monitoring from cardiology standpoint and high risk for reinfarction Brief Synthesis of Preadmission Screen, Post-Admission Evaluation, and Therapy Evaluations: OT and ST will focus on regaining ability to communicate and comprehend information in order to ultimately return home to live independently Medical Prognosis: Fair Anticipated Length of Stay: 7 days KERMIT EVANS DO Nov 30, 2019 08:41
--- NOTE | 2019-11-30 08:41 | PM&R Progress Note ---
Subjective HPI/CC On Admission Date Seen by Provider: Nov 30, 2019 Time Seen by Provider: 08:45 Subjective/Events-last exam Pt had a good night No falls Working with OT and speech therapy for cognitive communication skills do to aphasia Checked labs Dr. Arambula appreciated No AFIB issues Checked meds and labs Conferred with RN Reviewed therapy notes Review of Systems General: Fatigue, Malaise Neurological: Weakness Objective Exam Vital Signs Vital Signs Date Time Temp Pulse Resp B/P (MAP) Pulse Ox O2 Delivery O2 Flow Rate FiO2 12/01/19 01:00 51 11/30/19 20:55 Room Air 11/30/19 18:00 36.9 18 172/77 (108) 99 Capillary Refill : Less Than 3 Seconds General Appearance: No Apparent Distress, WD/WN, Chronically ill, Obese HEENT: PERRL/EOMI, Normal ENT Inspection, Pharynx Normal Neck: Full Range of Motion, Normal Inspection, Non Tender, Supple, Carotid Bruit Respiratory: Chest Non Tender, Lungs Clear, Normal Breath Sounds, No Accessory Muscle Use, No Respiratory Distress Cardiovascular: Regular Rate, Rhythm, No Edema, No Gallop, No JVD, No Murmur, Normal Peripheral Pulses Gastrointestinal: Normal Bowel Sounds, No Organomegaly, No Pulsatile Mass, Non Tender, Soft Back: Normal Inspection, No CVA Tenderness, No Vertebral Tenderness Extremity: Normal Capillary Refill, Normal Inspection, Normal Range of Motion, Non Tender, No Calf Tenderness, No Pedal Edema Neurologic/Psychiatric: Alert, Oriented x3, No Motor/Sensory Deficits, Normal Mood/Affect, mitigation supervisor II-XII Norm as Tested, Abnormal Gait, Aphasia (partial with receptive aphasia), Motor Weakness (generalized lower legs) Skin: Normal Color, Warm/Dry Lymphatic: No Adenopathy Results/Procedures Lab Laboratory Tests 11/30/19 05:27 Patient resulted labs reviewed. FIM Transfers Therapy Code Descriptions/Definitions Functional [place] Measure: 0=Not Assessed/NA 4=Minimal Assistance 1=Total Assistance 5=Supervision or Setup 2=Maximal Assistance 6=Modified [place] 3=Moderate Assistance 7=Complete IndependenceSCALE: Activities may be completed with or without assistive devices. 5-Knttsulmvs-cqwftdk completes the activity by him/herself with no assistance from a helper. 5-Set-up or Clean-up Assistance-helper sets up or cleans up; patient completes activity. [place] assists only prior to or following the activity. 4-Supervision or Touching Assistance-helper provides verbal cues and/or touching/steadying and/or contact guard assistance as patient completes activity. Assistance may be provided throughout the activity or intermittently. 3-Partial/Moderate Assistance-helper does LESS THAN HALF the effort. [place] lifts, holds or supports trunk or limbs, but provides less than half the effort. 2-Substantial/Maximal Assistance-helper does MORE THAN HALF the effort. [place] lifts or holds trunk or limbs and provides more than half the effort. 3-Lprlbjpbc-dpscug does ALL the effort. Patient does none of the effort to complete the activity. Or, the assistance of 2 or more helpers is required for the patient to complete the activity. If activity was not attempted, code reason: 7-Patient Refused. 9-Not Applicable-not attempted and the patient did not perform the activity before the current illness, exacerbation or injury. 10-Not Attempted due to Environmental Limitations-(lack of equipment, weather restraints, etc.). 88-Not Attempted due to Medical Conditions or Safety Concerns. Roll Left to Right (QC): 6 Sit to Lying (QC): 6 Sit to Stand (QC): 6 Chair/Xyb-mq-Sjggx Xfer(QC): 6 Car Transfer (QC): 4 Gait Training Does the Patient Walk?: Yes Walk 10 feet (QC): 6 Walk 50 ft with 2 Turns(QC): 6 Walk 150 ft (QC): 4 Walking 10ft/uneven surface-QC: 4 Gait Assistive Device: None Wheelchair Training Does the Pt Use a Wheelchair?: No Wheel 50 ft with 2 turns (QC): 9 Wheel 150 ft (QC): 9 Stair Training #of Steps: 4 1 Step (curb) (QC): 4 4 Steps (QC): 4 12 Steps (QC): 88 Balance Picking up an Object (QC): 4 ADL-Treatment Eating (QC): 88 Oral Hygiene (QC): 5 (Already performed per pt.) Shower/Bathe Self (QC): 7 Upper Body Dressing (QC): 5 (Per pt. report) Lower Body Dressing (QC): 4 (Per pt. report.) On/Off Footwear (QC): 6 Toileting Hygiene (QC): 7 Assessment/Plan Assessment and Plan Assess & Plan/Chief Complaint Assessment: CVA w/aphasia and receptive aphasia New onset AF s/p tPA 11/22/19 no OAC until 12/06/19 HTN HLP Obesity [place] Plan: IRF protocol ASA Statin Monitor closely 11/30/19: In patient rehab protocol Cardiology appreciated Fall risk prevention (1) CVA (cerebral vascular accident) (2) Atrial fibrillation (3) Hypertension (4) Hyperlipemia (5) Aphasia (6) Receptive aphasia (7) Confusion (8) Presbycusis of both ears (9) Risk for falls (10) Received intravenous tissue plasminogen activator (tPA) in emergency department KERMIT EVANS DO Nov 30, 2019 08:41
[2019-11-30] MEDS: ASPIRIN E.C. 81 MG (ECOTRIN) TAB PO SCH (08:45)
[2019-11-30] MEDS: OMEGA 3 (FISH OIL) 1000 MG CAP PO SCH (08:45)
[2019-11-30] MEDS: lisINopril 10 MG (PRINIVIL) TABLET PO SCH (08:45)
[2019-11-30] MEDS: SENNA W/DOCUSATE (SENOKOT S) TABLET PO SCH ×2 (08:45→20:57)
[2019-11-30] MEDS: DOCUSATE SODIUM 100 MG (COLACE) CAP PO SCH ×2 (08:45→20:52)
[2019-11-30] MEDS: polyethylene glycoL POWDER 17 GM (MIRALAX) PACK PO SCH ×2 (08:46→20:52)
[2019-11-30] MEDS: SOTALOL 80 MG (BETAPACE) TAB PO SCH (08:47)
[2019-11-30] MEDS ORDERED: LISI-552 PO (08:54)
--- NOTE | 2019-11-30 08:57 | NUR ---
MED REC WAS ENTERED USING THE DISCHARGE ORDERS FROM [facility]- AFTER MEDS ARE CONTINUED I WILL SPEAK WITH THE PT TO MAKE ANY CHANGES TO THE NOTES/MED REC IF NEEDED Addendum: 11/30/19 at 0901 by GABRIELA ARAYA CPhT AFTER MEDICATIONS HAD BEEN CONTINUED, WHILE I WAS SPEAKING WITH THE PT I NOTICED THE INCORRECT STRENGTH OF LISINOPRIL HAD BEEN ENTERED ON THE MED REC. THE DISCHARGE ORDERS SAY THE LAST DOSE PT RECEIVED FROM [facility] WAS 10MG (AND THAT IS WHAT I ENTERED) HOWEVER [facility] INTENDED FOR THE PT TO START TAKING 20MG ONCE THE PT WAS DISCHARGED. I HAVE ENTERED THE CORRECT STRENGTH ON THE MED REC AND WILL LET DR. EVANS KNOW OF THIS CHANGE Addendum: 12/01/19 at 0943 by GABRIELA ARAYA CPhT I SPOKE WITH DR. EVANS REGARDING THE LISINOPRIL DOSE AND SHE REQUESTED I MAKE DR. LOGAN AWARE OF THIS ISSUE. I SPOKE WITH HEIDI MORGAN AND LET HER KNOW OF MY FINDINGS AND ALSO MENTIONED PT WAS ON 40MG PRIOR TO [facility]. Addendum: 12/01/19 at 0951 by GABRIELA ARAYA [facility] THE FOLLOWING CHANGES HAVE BEEN MADE TO THE MED REC: MEDICATIONS THAT HAVE BEEN REMOVED DUE TO PT NOT TAKING PRIOR TO [facility]: ASPIRIN 81MG SOTALOL 40MG (PT TAKING OF AN 80MG) MEDICATIONS ADDED TO MED REC DUE TO PT TAKING PRIOR TO [facility] BUT HAD BEEN DISCONTINUED AT DISCHARGE: HCTZ 25MG METOPROLOL SUCC 100MG MEDICATION CHANGES: ATORVASTATIN 40MG IS WHAT IS ORDERED ON DISCHARGE HOWEVER PT HAD BEEN TAKING ATORVASTATIN 10MG- THEREFORE 10MG IS WHAT THE MED REC NOW SHOWS I HAVE ALSO PUT LISINOPRIL 40MG ON THE MED REC TO REFLECT THE DOSAGE PT WAS TAKING PRIOR TO [facility]
[2019-11-30] MEDS ORDERED: D3 PO SCH (09:00)
[2019-11-30] MEDS ORDERED: COD LIVER OIL PO SCH (09:00)
[2019-11-30] MEDS ORDERED: [UNRECOGNIZED DRUG - OTHER] PO SCH (09:00)
[2019-11-30] MEDS ORDERED: VIT A PO SCH (09:00)
--- NOTE | 2019-11-30 09:12 | Occupational Ther Daily Note ---
OT Current Status-Daily Note Subjective Pt seen in recliner, alert/ awake. Pt agrees to OT. No pain. Pt limited by expressive/ receptive aphasia in session. Pt seen with PT during session. OT/ PT co-treat during kitchen mobility with OT addressing UE movement, problem solving, sequencing, scanning; PT addresses fx activity tolerance, balance, LE movement. Mental Status/Objective Patient Orientation: Person ADL-Treatment Therapy Code Descriptions/Definitions Functional [place] Measure: 0=Not Assessed/NA 4=Minimal Assistance 1=Total Assistance 5=Supervision or Setup 2=Maximal Assistance 6=Modified [place] 3=Moderate Assistance 7=Complete IndependenceSCALE: Activities may be completed with or without assistive devices. 8-Omjijlsbas-dxikiqh completes the activity by him/herself with no assistance from a helper. 5-Set-up or Clean-up Assistance-helper sets up or cleans up; patient completes activity. [place] assists only prior to or following the activity. 4-Supervision or Touching Assistance-helper provides verbal cues and/or touching/steadying and/or contact guard assistance as patient completes activity. Assistance may be provided throughout the activity or intermittently. 3-Partial/Moderate Assistance-helper does LESS THAN HALF the effort. [place] lifts, holds or supports trunk or limbs, but provides less than half the effort. 2-Substantial/Maximal Assistance-helper does MORE THAN HALF the effort. [place] lifts or holds trunk or limbs and provides more than half the effort. 2-Kugmbfkjt-hrexwj does ALL the effort. Patient does none of the effort to complete the activity. Or, the assistance of 2 or more helpers is required for the patient to complete the activity. If activity was not attempted, code reason: 7-Patient Refused. 9-Not Applicable-not attempted and the patient did not perform the activity before the current illness, exacerbation or injury. 10-Not Attempted due to Environmental Limitations-(lack of equipment, weather restraints, etc.). 88-Not Attempted due to Medical Conditions or Safety Concerns. Eating (QC): 6 Oral Hygiene (QC): 7 Shower/Bathe Self (QC): 4 (SBA, pt stands in shower to complete, all tasks with IND.) Upper Body Dressing (QC): 6 (IND in bathroom. ) Lower Body Dressing (QC): 4 (SUP on stool, good balance noted.) On/Off Footwear: 4 (SUP) Toileting Hygiene (QC): 4 (SUP, completes in shower with IND.) Toilet Transfer (QC): 6 (IND.) Other Treatment Pt seen in recliner. Pt introduced to OT and introduced to session activity. Pt agrees to shower, completes with SBA-IND with showering/ dressing tasks. Pt stands during shower, safe, sequences daily tasks with ease. OT references pictures of family in the room. Pt able to state 2 grandchildren's names, unable to state 's. Problem solving tasks initiated with pt with increased cues for sequencing/ task purpose and direction following. Pt becomes frustrated with self after stating colors of pegs- repeating "red" for each item rather than correct color. Pt requires OT to state color prior to initiation of vocalization attempt, able to state 4/5 colors correctly with increased vcs, though unable to replicate without vcs. Pt able to sort 2 items with ease/ good pace. Pt able to find 3 pieces of puzzle through scanning/ problem solving and trial and error. Pt left in recliner with all needs met, call light in reach, pt's chair alarm on and pt is educated on use of call light prior to standing. Pt agrees. Pt seen again this am with focus on familiar tasks of cooking. OT/ PT co-treat during kitchen mobility with OT addressing UE movement, problem solving, sequencing, scanning; PT addresses fx activity tolerance, balance, LE movement. Pt given 6 pictures of common kitchen tools. Pt able to find 2/6 without physical cueing; increased cues with increased environmental stimuli. Pt limited by impulsiveness at times, grabbing hold tin foil cutting edge and knives/ forks within the drawer. Pt is encouraged to state item once found with success if vc utilized prior. pt requires skilled cues for scanning and problem solving. Pt reaches through fridge and lower cabinets without LOB. Pt returns to room, able to find 3/3 items in room without cues and demonstrate correct use of tool, though unable to label after statement. Pt sits to complete ingredient gathering task with pictures associated with words of recipe. Pt able to find correct picture ~50% of the time. Pt is asked to place items in order of occurrence within recipe with ~2/6 items with IND, requires cues for correction of other items. Pt speaks minimal full sentences through session, states, "I am speaking better!" Pt encouraged to continue speaking, all needs met, call light in reach. Chair alarm on. Education OT Patient Education: Correct positioning, Progress toward Goal/Update tx plan, Purpose of tx/functional activities, Rehab process, Safety issues Teaching Recipient: Patient Teaching Methods: Demonstration, Discussion Response to Teaching: Verbalize Understanding, Return Demonstration, Reinforcement Needed OT Documentation Liaison Goals Documentation Liaison Goals Time Frame: Dec 13, 2019 Eating (QC): 6 Oral Hygiene (QC): 6 Toileting Hygiene (QC): 6 Shower/Bathe Self (QC): 6 Upper Body Dressing (QC): 6 Lower Body Dressing (QC): 6 On/Off Footwear (QC): 6 Additional Goals: 1-Demonstrate ADL Tasks, 2-Verbalize Understanding, 3- ImproveStrength/[place] 1=Demonstrate adherence to instructed precautions during ADL tasks. 2=Patient will verbalize/demonstrate understanding of assistive devices/modifications for ADL. 3=Patient will improve strength/tolerance for activity to enable patient to perform ADL's. OT Education/Plan Problem List/Assessment Assessment: Decreased Activ Tolerance, Decreased Safety Aware, Impaired I ADL's Discharge Recommendations Plan/Recommendations: Continue POC Therapy Discharge Recommendati: Home & Family Treatment Plan/Plan of Care Treatment,Training & Education: Yes Patient would benefit from OT for education, treatment and training to promote independence in ADL's, mobility, safety and/or upper extremity function for ADL' s. Plan of Care: ADL Retraining, Cognitive Retraining, Functional Mobility Treatment Duration: Dec 13, 2019 Frequency: At least 5 of 7 days/Wk (IRF) Estimated Hrs Per Day: 1.5 hours per day Agreement: Yes Rehab Potential: Fair Time/GCodes Start Time: 08:00 Stop Time: 09:00 Total Time Billed (hr/min): 90 Billed Treatment Time 0216-1629: 1, ADL (15), FA 3 (45)= 60 OT/ PT co-treat during kitchen mobility with OT addressing UE movement, problem solving, sequencing, scanning; PT addresses fx activity tolerance, balance, LE movement for 20 min ([id number], OT individual tx from [id number]) 5416-7670: 1, FA 2= 30 AV ROSSI OTR Nov 30, 2019 09:12
--- NOTE | 2019-11-30 10:02 | Consultation-Cardiology ---
HPI-Cardiology Cardiology Consultation Date of Consultation 11/30/19 Date of Admission Time Seen by Provider: 08:45 Indication: CVA HPI Patient is a 69 y/o female presented to IRF from [facility] after suffering acute CVA. Patient was at [place] on 11/22/2019 when she had acute onset of right facial droop and aphasia. MRI revealed acute left frontal infarct in the L MCA. Received tPA. Telemetry while in [place] revealed atrial fibrillation. Currently on sotalol. Denies any chest pain, dyspnea, dizziness or lightheadedness. Facial droop and right sided weakness improved. Continues to have expressive aphasia. 69 years old lady with recent stroke, diagnosed with paroxysmal atrial fibrillation, received TPA. Feeling better, receiving physical therapy, denied any previous cardiac history, no chest pain or shortness of breath. Her aphasia is improving. Home Medications & Allergies Allergies: Coded Allergies: Sulfa (Sulfonamide Antibiotics) (Verified Allergy, Unknown, 11/29/19) clindamycin (Verified Allergy, Unknown, 11/29/19) Home Medication List Reviewed: Yes UAK-Iljsts-Fyqfix Hx Patient Social History Marital Status: Employed/Student: retired Alcohol Use: Denies Use Recreational Drug Use: No Smoking Status: Never a Smoker Recent Foreign Travel: No Recent Infectious Disease Expo: No Recent Hopitalizations: No Physical Abuse Screen: No Sexual Abuse: No Immunizations Up To Date Date of Pneumonia Vaccine: Jan 28, 2019 Past Medical History HTN, HLP Family Medical History Significant Family History: No Pertinent Family Hx Family History: Completed stroke 19 FATHER 19 MOTHER Hypertension G8 BROTHER Myocardial infarction 19 FATHER 19 MOTHER Review of Systems-General Review of Systems Constitutional: see HPI, dizziness, malaise, weakness EENTM: no symptoms reported Respiratory: no symptoms reported Cardiovascular: no symptoms reported Gastrointestinal: no symptoms reported Genitourinary: no symptoms reported Musculoskeletal: no symptoms reported Skin: no symptoms reported Psychiatric/Neurological: Weakness, Other (speech difficulties) All Other Systems Reviewed Negative Unless Noted: Yes Reviewed Test Results Reviewed Test Results Lab Laboratory Tests 11/30/19 05:27: White Blood Count 5.3, Red Blood Count 3.89L, Hemoglobin 12.6, Hematocrit 36, Mean Corpuscular Volume 94, Mean Corpuscular Hemoglobin 32, Mean Corpuscular Hemoglobin Concent 35, Red Cell Distribution Width 13.4, Platelet Count 229, Mean Platelet Volume 8.9, Neutrophils (%) (Auto) 59, Lymphocytes (%) (Auto) 25, Monocytes (%) (Auto) 12, Eosinophils (%) (Auto) 4, Basophils (%) (Auto) 0, Neutrophils # (Auto) 3.1, Lymphocytes # (Auto) 1.3, Monocytes # (Auto) 0.6, Eosinophils # (Auto) 0.2, Basophils # (Auto) 0.0, Sodium Level 140, Potassium Level 3.6, Chloride Level 108H, Carbon Dioxide Level 22, Anion Gap 10, Blood Urea Nitrogen 21H, Creatinine 0.78, Estimat Glomerular Filtration Rate > 60, BUN/Creatinine Ratio 27, Glucose Level 103, Calcium Level 8.9, Corrected Calcium 9.1, Total Bilirubin 1.2H, Aspartate Amino Transf (AST/SGOT) 26, Alanine Aminotransferase (ALT/SGPT) 18, Alkaline Phosphatase 60, Total Protein 6.4, Albumin 3.7 ECG Impression ECG Initial ECG Rhythm: Normal Sinus Physical Exam Physical Exam Vital Signs Vital Signs - First Documented 11/29/19 11/29/19 14:58 17:00 Temp 36.2 Pulse 60 Resp 18 B/P (MAP) 154/63 Pulse Ox 97 O2 Delivery Room Air Capillary Refill : Less Than 3 Seconds Height, Weight, BMI Height: '" Weight: lbs. oz. kg; 34.56 BMI Method: General Appearance: No Apparent Distress, WD/WN, Obese Eyes: Bilateral Eye Normal Inspection, Bilateral Eye PERRL HEENT: PERRL/EOMI, Normal ENT Inspection, Pharynx Normal Neck: Full Range of Motion, Normal Inspection, Non Tender, Supple, Carotid Bruit Respiratory: Chest Non Tender, Lungs Clear, Normal Breath Sounds, No Accessory Muscle Use, No Respiratory Distress Cardiovascular: Regular Rate, Rhythm, No Edema, No Gallop, No JVD, No Murmur, Normal Peripheral Pulses Gastrointestinal: Normal Bowel Sounds, No Organomegaly, No Pulsatile Mass, Non Tender, Soft Back: Normal Inspection, No CVA Tenderness, No Vertebral Tenderness Extremity: Normal Capillary Refill, Normal Inspection, Normal Range of Motion, Non Tender, No Calf Tenderness, No Pedal Edema Neurologic/Psychiatric: Alert, Oriented x3, No Motor/Sensory Deficits, Normal Mood/Affect, marketing account executive II-XII Norm as Tested, Abnormal Gait, Aphasia (partial with receptive aphasia), Motor Weakness (generalized lower legs) Skin: Normal Color, Warm/Dry Lymphatic: No Adenopathy A/P-Cardiology Admission Diagnosis CVA PAF HTN HLP Assessment/Plan CVA, 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 Currently maintained on ASA. Continues to have expressive aphasia, continue with PT/OT PAF, diagnosed after CVA. Maintained on Sotalol and currently in SR. Will place patient on telemetry and continue to monitor. Will need to start OAC if she has any further afib episodes. HTN, controlled, continue to monitor. HLP- maintained on statin. Thank you for allowing us to participate in the management of Ms. Humphries. This is Harleen Wong PA-C, as a scribe for Dr. Arambula. Patient was seen and evaluated with Harleen, examination performed, management plan was discussed, agree with the current scribed note, I made few changes to the note using Italic font Patient currently is having regular rhythm, reporting significant improvement in her symptoms. Discussed the management plan and planning to start oral anticoagulation after December 06, 2019. I will place her on telemetry meanwhile and continue to monitor, if she goes back to atrial fibrillation I will start Lovenox Continue to monitor blood pressure and lipids Clinical Quality Measures DVT/VTE Risk/Contraindication: Risk Factor Score Per Nursin RFS Level Per Nursing on Admit: 4+=Very High Contraindications-Pharm: Other *list below* Other: tpa 11/22/19 HARLEEN DICKSON Nov 30, 2019 10:02 JENS ARAMBULA MD Nov 30, 2019 11:04
--- NOTE | 2019-11-30 11:56 | Physical Therapy Daily Note ---
PT Daily Note-Current Subjective Pt sitting in recliner upon arrival. Pt agrees to PT. Pt demonstrates impulsivity. Pain Location: No Pain Reported Mental Status Patient Orientation: Person, Place, Non-Verbal/Aphasic Pt attempts to communicate but gets frustrated when verbal does not happen or gets scrambled. Transfers SCALE: Activities may be completed with or without assistive devices. 6-Uzeyqhahki-cvsccep completes the activity by him/herself with no assistance from a helper. 5-Set-up or Clean-up Assistance-helper sets up or cleans up; patient completes activity. [place] assists only prior to or following the activity. 4-Supervision or Touching Assistance-helper provides verbal cues and/or touching/steadying and/or contact guard assistance as patient completes activity. Assistance may be provided throughout the activity or intermittently. 3-Partial/Moderate Assistance-helper does LESS THAN HALF the effort. [place] lifts, holds or supports trunk or limbs, but provides less than half the effort. 2-Substantial/Maximal Assistance-helper does MORE THAN HALF the effort. [place] lifts or holds trunk or limbs and provides more than half the effort. 3-Ikuvzonmx-ekkzlb does ALL the effort. Patient does none of the effort to complete the activity. Or, the assistance of 2 or more helpers is required for the patient to complete the activity. If activity was not attempted, code reason: 7-Patient Refused. 9-Not Applicable-not attempted and the patient did not perform the activity befo re the current illness, exacerbation or injury. 10-Not Attempted due to Environmental Limitations-(lack of equipment, weather re straints, etc.). 88-Not Attempted due to Medical Conditions or Safety Concerns. Sit to Stand (QC): 5 Weight Bearing Full Weight Bearing Full Weight Bearing Gait Training Does the Patient Walk?: Yes Distance: 150', 450' Walk 10 feet (QC): 5 Walk 50 ft with 2 Turns(QC): 5 Walk 150 ft (QC): 5 Gait Persons Needed: 1 Gait Assistive Device: None Pt is impulsive and SPECTROGRAPH OPERATOR there for safety. Wheelchair Training Does the Pt Use a Wheelchair?: No Exercises Supine Ex: Ankle pumps, Quad Set, Heel Slides, Short Arc Quads, Scooting, Straight leg raise, Hip abd/add Supine Reps: 15 NuStep Minutes: 15 NuStep Workload: 4 Treatments TF to standing, amb. in hallway. Uses NuStep for 15m at WL 4, completes Supine Ex on Therapy mat then takes extended amb. in hallway. returns to room where met with OT and completes co-treat for focus on Dynamic standing/movement activity with identifying household items. Returns to room at end of tx to rest in recliner and continue OT tx. Skill of 2 skilled clinicians needed to impulsivity and balance of pt at this time. PT works on Dynamic standing/movement balance while OT works on finding and identifying household items. Assessment Current Status: Good Progress Pt continues to make progress with strength and mobility although still impulsive and SPECTROGRAPH OPERATOR stays close for safety. PT Short Term Goals Short Term Goals Time Frame: Dec 06, 2019 Roll Left & Right: 6 Sit to lyin Lying to sitting on side of be: 6 Sit to stand: 6 Chair/tno-lr-xqpsw transfer: 6 Toilet transfer: 6 Car transfer: 5 Walk 10 feet: 5 Walk 50 feet with two turns: 5 Walk 150 feet: 5 1 step (curb): 5 4 steps: 5 PT City Mail Carrier Goals City Mail Carrier Goals PT [place] [employer]rier Goals Time Frame: Dec 13, 2019 Roll Left & Right (QC): 6 Sit to Lying (QC): 6 Lying-Sitting on Side/Bed(QC): 6 Sit to Stand (QC): 6 Chair/Rbq-ex-Hbmyk Xfer(QC): 6 Toilet Transfer (QC): 6 Car Transfer (QC): 6 Does the Patient Walk: Yes Walk 10 feet (QC): 6 Walk 50ft with 2 Turns (QC): 6 Walk 150 ft (QC): 6 Walking 10ft on Uneven Surface: 6 1 Step (curb) (QC): 6 4 Steps (QC): 6 12 Steps (QC): 6 Picking up an Object (QC): 6 Does the Pt use WC or Scooter?: No Wheel 50 feet with 2 turns (QC: 9 Wheel 150 feet: 9 PT Plan Problem List Problem List: Activity Tolerance, Safety Treatment/Plan Treatment Plan: Continue Plan of Care Treatment Plan: Education, Functional Activity [place], Functional Strength, Gait, Safety, Therapeutic Exercise, Transfers Treatment Duration: Dec 13, 2019 Frequency: At least 5 of 7 days/Wk (IRF) Estimated Hrs Per Day: 1 hour per day Patient and/or Family Agrees t: Yes Safety Risks/Education Patient Education: Gait Training, Correct Positioning, Safety Issues Teaching Recipient: Patient Teaching Methods: Discussion Response to Teaching: Reinforcement Needed Time/GCodes Time In: 1045 Time Out: 1150 Total Billed Treatment Time: 65 Total Billed Treatment 1, GT (20m), EX x2 (30m) & FA (15m) JAX MCNEAL SPECTROGRAPH OPERATOR Nov 30, 2019 11:56
--- NOTE | 2019-11-30 13:33 | Physical Therapy Daily Note ---
PT Daily Note-Current Subjective Pt sitting in recliner upon arrival. Pt agrees to PT. Pain Location: No Pain Reported Mental Status Patient Orientation: Person, Non-Verbal/Aphasic Transfers SCALE: Activities may be completed with or without assistive devices. 7-Lkbvmfivqa-mpgeqoo completes the activity by him/herself with no assistance from a helper. 5-Set-up or Clean-up Assistance-helper sets up or cleans up; patient completes activity. [place] assists only prior to or following the activity. 4-Supervision or Touching Assistance-helper provides verbal cues and/or touching/steadying and/or contact guard assistance as patient completes activity. Assistance may be provided throughout the activity or intermittently. 3-Partial/Moderate Assistance-helper does LESS THAN HALF the effort. [place] lifts, holds or supports trunk or limbs, but provides less than half the effort. 2-Substantial/Maximal Assistance-helper does MORE THAN HALF the effort. [place] lifts or holds trunk or limbs and provides more than half the effort. 7-Ufjmmaowv-yniuhh does ALL the effort. Patient does none of the effort to complete the activity. Or, the assistance of 2 or more helpers is required for the patient to complete the activity. If activity was not attempted, code reason: 7-Patient Refused. 9-Not Applicable-not attempted and the patient did not perform the activity before the current illness, exacerbation or injury. 10-Not Attempted due to Environmental Limitations-(lack of equipment, weather restraints, etc.). 88-Not Attempted due to Medical Conditions or Safety Concerns. Sit to Lying (QC): 6 Sit to Stand (QC): 5 Weight Bearing Full Weight Bearing Full Weight Bearing Gait Training Distance: 750' Walk 10 feet (QC): 5 Walk 50 ft with 2 Turns(QC): 5 Walk 150 ft (QC): 5 Gait Persons Needed: 1 Gait Assistive Device: None Wheelchair Training Does the Pt Use a Wheelchair?: No Stair Training Stair Training: Handrails/: 2 handrails #of Steps: 4 1 Step (curb) (QC): 5 4 Steps (QC): 5 Stairs: Pattern: Step to Treatments TF to standing and amb. in hallway and main floor of hospital as well as garden area. Amb. back to ARU, returns to room to rest Supine in bed with all needs met, call light in hand. Assessment Current Status: Good Progress Pt tosha. tx well, shows frustration at times with trying to communicate. PT Short Term Goals Short Term Goals Time Frame: Dec 06, 2019 Roll Left & Right: 6 Sit to lyin Lying to sitting on side of be: 6 Sit to stand: 6 Chair/rfv-pl-kfaba transfer: 6 Toilet transfer: 6 Car transfer: 5 Walk 10 feet: 5 Walk 50 feet with two turns: 5 Walk 150 feet: 5 1 step (curb): 5 4 steps: 5 PT Rn Field Goals Rn Field Goals PT Rn Field Goals Time Frame: Dec 13, 2019 Roll Left & Right (QC): 6 Sit to Lying (QC): 6 Lying-Sitting on Side/Bed(QC): 6 Sit to Stand (QC): 6 Chair/Iyj-ff-Dzqjx Xfer(QC): 6 Toilet Transfer (QC): 6 Car Transfer (QC): 6 Does the Patient Walk: Yes Walk 10 feet (QC): 6 Walk 50ft with 2 Turns (QC): 6 Walk 150 ft (QC): 6 Walking 10ft on Uneven Surface: 6 1 Step (curb) (QC): 6 4 Steps (QC): 6 12 Steps (QC): 6 Picking up an Object (QC): 6 Does the Pt use WC or Scooter?: No Wheel 50 feet with 2 turns (QC: 9 Wheel 150 feet: 9 PT Plan Problem List Problem List: Safety Treatment/Plan Treatment Plan: Continue Plan of Care Treatment Plan: Education, Functional Activity [place], Functional Strength, Gait, Safety, Therapeutic Exercise, Transfers Treatment Duration: Dec 13, 2019 Frequency: At least 5 of 7 days/Wk (IRF) Estimated Hrs Per Day: 1 hour per day Patient and/or Family Agrees t: Yes Safety Risks/Education Patient Education: Gait Training, Transfer Techniques, Steps, Correct Positioning, Safety Issues Teaching Recipient: Patient Teaching Methods: Discussion Response to Teaching: Verbalize Understanding Time/GCodes Time In: 1300 Time Out: 1325 Total Billed Treatment Time: 25 Total Billed Treatment 1, GT (15m) & FA (10m) JAX MCNEAL FULL STACK NET DEVELOPER Nov 30, 2019 13:33
--- NOTE | 2019-11-30 13:58 | NUR ---
"RD ASSESSMENT PMHx: afib; hypercholesterolemia; HTN; RA; recent CVA PT INTERACTION: Pt was awake and pleasant during nutrition assessment. Pt states current appetite is good. Note avg PO intake 40% x2meal, per chart review. Pt states following a regular diet at home, and has no issues with chewing/swallowing food. Pt states no recent issues with nausea, vomiting, constipation, or diarrhea, and that is unsure of when her last BM occurred. Note pt currently on bowel regimen of colace BID; senna BID; and miralax BID, per chart review. Pt states no recent wt changes. Note unable to determine recent wt hx, per chart review. ABNORMAL NUTRITION-RELATED LAB VALUES LOW: HIGH: Cl 108; BNU 21; bili 1.2 Est. kcal needs: 1450 kcal | 15 kcal/kg Est. Pro needs: 78 g Pro | 0.8 g Pro/kg PES STATEMENT: Inadequate oral intake (NI-2.1) related to loss of appetite as evidenced by pt interview | avg PO intake 40% x2meal INTERVENTION: Continue with current diet order of Heart Healthy diet. Pt may benefit from nutrition supplementation if PO intake declines. Will continue to follow and reassess as pt needs, intake, and status change. MONITOR/EVALUATE: PO Intake; Plan of Care; Hydration Status; Weight Status; Lab Values Clay Ulloa, , RD, LD"
--- NOTE | 2019-11-30 15:30 | NUR ---
CM/SS ADMISSION Patient was admitted to ARU 11/29/19 from [facility] for CVA with aphasia/receptive aphasia. Additional diagnoses are, in part, Afib, HTN, hyperlipidemia, status post administration of tPA. Patient was completely IADL prior to this acute onset of stroke at the ballgame of a grandchild, including driving. Patient resides with her spouse of 50 years, Latrell Humphries, and he adds they dated 4 years prior to their marriage. Discharge plan is that patient will return home with Latrell as before, they request outpatient speech therapy rather than in-home services. PCP: Dr. Obdulio Maher MD, [facility], [address] [place] [address]. PH: [phone] PHARMACY: [facility] INSURED: Medicare, [employer] Medicare Supplement Plan G (provided card copy to Registration) DME: None, never needed. BARRIERS TO DISCHARGE: None noted at this time. Patient appears to have greatest deficits aphasia/receptive aphasia. She is ambulating without AD at this time, no DME needed unless her functioning level changes. Home with Spouse who is very supportive and respectful with patient. Daughter resides in close proximity. CONTACTS: Latrell Humphries, Spouse [address] [place] [address] (Preferred) Home: Deepa Beckwith, Daughter [address], [place] [address] [place] Humphries, Son [address] [place] [address] Home: Patient and spouse understood the purpose and process of the weekly patient team conference and that patient's first review will be 12/01/19. Regarding post hospital services, they have requested outpatient speech therapy as earlier noted.
[2019-11-30 18:00] VITALS: BP 172/77
[2019-11-30] MEDS ORDERED: amLODIPine 5 MG (NORVASC) TAB ONE (18:40)
--- NOTE | 2019-11-30 18:40 | NUR ---
CALLED DR LOGAN REGARDING PATIENT'S BP. ONE TIME DOSE OF 5MG PO NORVASC AND 10 MG PO LISINOPRIL ORDERED
[2019-11-30] MEDS ORDERED: lisINopril 10 MG (PRINIVIL) TABLET PO ONE (18:45)
[2019-11-30] MEDS ORDERED: amLODIPine 5 MG (NORVASC) TAB PO ONE (18:45)
--- NOTE | 2019-11-30 19:05 | NUR ---
bedside report received from YANIQUE POWERS, assume care of pt
[2019-11-30] MEDS: MELATONIN 3 MG TABLET PO PRN (20:52)
--- NOTE | 2019-11-30 20:52 | NUR ---
pt took colace & miralax refused senoskot, still has trouble expressing herself but can swallow without difficulty
--- NOTE | 2019-11-30 22:00 | NUR ---
noticed pt had no saline lock but had telemetry, tried to start iv site without success, called supervisor quality control to try
--- NOTE | 2019-11-30 22:20 | NUR ---
supervisor inspection and testing STEPHANIE POWERS tried without success.
--- NOTE | 2019-11-30 22:53 | NUR ---
notified of not able to start iv site with telemetry in place, orders received ok
[2019-12-01 05:21] VITALS: BP 155/72
[2019-12-01 07:56] VITALS: BP 143/65
[2019-12-01] MEDS: SENNA W/DOCUSATE (SENOKOT S) TABLET PO SCH ×2 (07:57→20:54)
[2019-12-01] MEDS: ASPIRIN E.C. 81 MG (ECOTRIN) TAB PO SCH (07:58)
[2019-12-01] MEDS: OMEGA 3 (FISH OIL) 1000 MG CAP PO SCH (07:58)
[2019-12-01] MEDS: lisINopril 10 MG (PRINIVIL) TABLET PO SCH (07:58)
[2019-12-01] MEDS: SOTALOL 80 MG (BETAPACE) TAB PO SCH (07:58)
[2019-12-01] MEDS: DOCUSATE SODIUM 100 MG (COLACE) CAP PO SCH ×2 (07:58→20:52)
--- NOTE | 2019-12-01 08:54 | Cardiology Progress Note ---
Subjective Date Seen by Provider: Dec 01, 2019 Time Seen by Provider: 08:51 Subjective/Events-last exam Patient is sitting up in chair. Denies any chest pain or dyspnea. Telemetry showing sinus rhythm. Objective-Cardiology Exam Last Set of Vital Signs Vital Signs 12/01/19 12/01/19 12/01/19 12/01/19 05:21 07:56 09:00 09:58 Temp 36.1 Pulse 60 Resp 20 B/P (MAP) 143/65 (91) Pulse Ox 97 O2 Delivery Room Air Capillary Refill : Less Than 3 Seconds I&O Intake and Output 12/01/19 00:00 Intake Total 490 ml Balance 490 ml Intake Oral 490 ml # Voids 5 # Bowel Movements 1 General: Alert, Oriented X3, Cooperative HEENT: Atraumatic, PERRLA Neck: Supple, No JVD, No Thyromegaly Lungs: Clear to Auscultation, Normal Air Movement Heart: Normal S1, Normal S2, No Murmurs, Other (bradycardic) Abdomen: Normal Bowel Sounds, Soft, No Tenderness, No Hepatosplenomegaly, No Masses Extremities: No Clubbing, No Cyanosis, No Edema, Normal Pulses, No Tenderness/Swelling Skin: No Rashes, No Significant Lesion Neuro: Normal Gait, Other (expressive aphasia) Psych/Mental Status: Mental Status NL, Mood NL A/P-Cardiology Admission Diagnosis CVA PAF HTN HLP Assessment/Plan CVA, 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 Currently maintained on ASA. Continues to have expressive aphasia, continue with PT/OT PAF, diagnosed after CVA. Maintained on Sotalol and currently in SR. Will place patient on telemetry and continue to monitor. Will need to start OAC after December 06, 2019, start Lovenox if patient goes back into atrial fibrillation before then. HTN, controlled, continue to monitor. HLP- maintained on statin. Patient was seen and evaluated with Harleen, examination performed, management plan was discussed, agree with the current scribed note, I made few changes to the note using Italic font Patient was seen during physical therapy session, she is doing better, feeling better Denied any chest pain, no shortness of breath. Continue to monitor Clinical Quality Measures DVT/VTE Risk/Contraindication: Risk Factor Score Per Nursin RFS Level Per Nursing on Admit: 4+=Very High Contraindications-Pharm: Other *list below* Other: tpa 11/22/19 HARLEEN DICKSON Dec 01, 2019 8:54 am JENS LOGAN MD Dec 01, 2019 2:20 pm
[2019-12-01] MEDS: polyethylene glycoL POWDER 17 GM (MIRALAX) PACK PO SCH ×2 (09:00→20:51)
--- NOTE | 2019-12-01 09:28 | Occupational Ther Daily Note ---
OT Current Status-Daily Note Subjective Pt seen in recliner this am. Pt is dressed for the day, denies ADLs. Pt alert, agrees to OT tx. ADL-Treatment Therapy Code Descriptions/Definitions Functional [place] Measure: 0=Not Assessed/NA 4=Minimal Assistance 1=Total Assistance 5=Supervision or Setup 2=Maximal Assistance 6=Modified [place] 3=Moderate Assistance 7=Complete IndependenceSCALE: Activities may be completed with or without assistive devices. 8-Dpulwvssol-vlwtnfb completes the activity by him/herself with no assistance from a helper. 5-Set-up or Clean-up Assistance-helper sets up or cleans up; patient completes activity. [place] assists only prior to or following the activity. 4-Supervision or Touching Assistance-helper provides verbal cues and/or touching/steadying and/or contact guard assistance as patient completes activity. Assistance may be provided throughout the activity or intermittently. 3-Partial/Moderate Assistance-helper does LESS THAN HALF the effort. [place] lifts, holds or supports trunk or limbs, but provides less than half the effort. 2-Substantial/Maximal Assistance-helper does MORE THAN HALF the effort. [place] lifts or holds trunk or limbs and provides more than half the effort. 3-Wzmdisjyq-yjuobk does ALL the effort. Patient does none of the effort to complete the activity. Or, the assistance of 2 or more helpers is required for the patient to complete the activity. If activity was not attempted, code reason: 7-Patient Refused. 9-Not Applicable-not attempted and the patient did not perform the activity before the current illness, exacerbation or injury. 10-Not Attempted due to Environmental Limitations-(lack of equipment, weather restraints, etc.). 88-Not Attempted due to Medical Conditions or Safety Concerns. Other Treatment Pt denies ADLs at this time. Pt alert. Pt completes executive functioning/ problem solving tasks at tabletop in minimally distracting environment. Pt completes 2 step activity (color matching) with success/ no cues. Upon 3 step, pt requires mod cues for STM and problem solving. Pt able to complete tasks with more accuracy if directions written on paper. Pt completes finding correct color when asked 7/10 times, whereas when asked to name color, pt able to correctly state color 1/7 times with repetition on one specific color. Pt able to remember directions after 1 min rest break. Pt ambulates throughout environment to 1st floor/ able to utilize signs/ environmental cues with moderate accuracy. Pt requires mod cues for reaching destination (gift shop). Pt able to scan environment to find 2/2 items with min cues, requires cues for remembering 1/2 items after ~3 min. Pt able to return to 2nd floor/ room with mod cues. Pt able to gather correct size measuring cups upon asking with accuracy, requires written instruction for Tsp vs TBS and completes with moderate accuracy. Pt left in room with all needs met, call light in reach, chair alarm on. Education OT Patient Education: Correct positioning, Progress toward Goal/Update tx plan, Purpose of tx/functional activities Teaching Recipient: Patient Teaching Methods: Demonstration, Discussion Response to Teaching: Verbalize Understanding, Return Demonstration, Reinforcement Needed OT Frame Stripper And Crusher Goals Frame Stripper And Crusher Goals Time Frame: Dec 13, 2019 Eating (QC): 6 Oral Hygiene (QC): 6 Toileting Hygiene (QC): 6 Shower/Bathe Self (QC): 6 Upper Body Dressing (QC): 6 Lower Body Dressing (QC): 6 On/Off Footwear (QC): 6 Additional Goals: 1-Demonstrate ADL Tasks, 2-Verbalize Understanding, 3- ImproveStrength/[place] 1=Demonstrate adherence to instructed precautions during ADL tasks. 2=Patient will verbalize/demonstrate understanding of assistive devices/modifications for ADL. 3=Patient will improve strength/tolerance for activity to enable patient to perform ADL's. OT Education/Plan Problem List/Assessment Assessment: Decreased Activ Tolerance Discharge Recommendations Plan/Recommendations: Continue POC Therapy Discharge Recommendati: Home & Family, Post Acute OT Treatment Plan/Plan of Care Treatment,Training & Education: Yes Patient would benefit from OT for education, treatment and training to promote independence in ADL's, mobility, safety and/or upper extremity function for ADL's. Plan of Care: ADL Retraining, Cognitive Retraining, Functional Mobility Treatment Duration: Dec 13, 2019 Frequency: At least 5 of 7 days/Wk (IRF) Estimated Hrs Per Day: 1.5 hours per day Agreement: Yes Rehab Potential: Fair Time/GCodes Start Time: 08:00 Stop Time: 09:15 Total Time Billed (hr/min): 75 Billed Treatment Time 1, FA 5 (75) AV ROSSI OTR Dec 01, 2019 09:28
--- NOTE | 2019-12-01 09:37 | PM&R Progress Note ---
Subjective HPI/CC On Admission Date Seen by Provider: Dec 01, 2019 Time Seen by Provider: 10:00 Subjective/Events-last exam 12/01/19: Pt is having a bit of improved cognition with speech therapy Still will need 24/ supervision Pt is very impulsive DC planning Pt had a good night No falls Working with OT and speech therapy for cognitive communication skills do to aphasia Checked labs Dr. Arambula appreciated No AFIB issues Checked meds and labs Conferred with RN Reviewed therapy notes Review of Systems General: Fatigue, Malaise Neurological: Weakness Objective Exam Vital Signs Vital Signs Date Time Temp Pulse Resp B/P (MAP) Pulse Ox O2 Delivery O2 Flow Rate FiO2 12/02/19 01:00 50 12/01/19 20:55 Room Air 12/01/19 18:00 36.7 18 146/68 (94) 97 Capillary Refill : Less Than 3 Seconds General Appearance: No Apparent Distress, WD/WN, Chronically ill, Obese HEENT: PERRL/EOMI, Normal ENT Inspection, Pharynx Normal Neck: Full Range of Motion, Normal Inspection, Non Tender, Supple, Carotid Bruit Respiratory: Chest Non Tender, Lungs Clear, Normal Breath Sounds, No Accessory Muscle Use, No Respiratory Distress Cardiovascular: Regular Rate, Rhythm, No Edema, No Gallop, No JVD, No Murmur, Normal Peripheral Pulses Gastrointestinal: Normal Bowel Sounds, No Organomegaly, No Pulsatile Mass, Non Tender, Soft Back: Normal Inspection, No CVA Tenderness, No Vertebral Tenderness Extremity: Normal Capillary Refill, Normal Inspection, Normal Range of Motion, Non Tender, No Calf Tenderness, No Pedal Edema Neurologic/Psychiatric: Alert, Oriented x3, No Motor/Sensory Deficits, Normal Mood/Affect, boat pilot II-XII Norm as Tested, Abnormal Gait, Aphasia (partial with receptive aphasia), Motor Weakness (generalized lower legs) Skin: Normal Color, Warm/Dry Lymphatic: No Adenopathy Results/Procedures Lab Patient resulted labs reviewed. FIM Transfers Therapy Code Descriptions/Definitions Functional [place] Measure: 0=Not Assessed/NA 4=Minimal Assistance 1=Total Assistance 5=Supervision or Setup 2=Maximal Assistance 6=Modified [place] 3=Moderate Assistance 7=Complete IndependenceSCALE: Activities may be completed with or without assistive devices. 0-Pmcaswbiip-dusppoi completes the activity by him/herself with no assistance from a helper. 5-Set-up or Clean-up Assistance-helper sets up or cleans up; patient completes activity. [place] assists only prior to or following the activity. 4-Supervision or Touching Assistance-helper provides verbal cues and/or touching/steadying and/or contact guard assistance as patient completes activity. Assistance may be provided throughout the activity or intermittently. 3-Partial/Moderate Assistance-helper does LESS THAN HALF the effort. [place] lifts, holds or supports trunk or limbs, but provides less than half the effort. 2-Substantial/Maximal Assistance-helper does MORE THAN HALF the effort. [place] lifts or holds trunk or limbs and provides more than half the effort. 3-Zounpslsz-zzgtkx does ALL the effort. Patient does none of the effort to complete the activity. Or, the assistance of 2 or more helpers is required for the patient to complete the activity. If activity was not attempted, code reason: 7-Patient Refused. 9-Not Applicable-not attempted and the patient did not perform the activity before the current illness, exacerbation or injury. 10-Not Attempted due to Environmental Limitations-(lack of equipment, weather restraints, etc.). 88-Not Attempted due to Medical Conditions or Safety Concerns. Roll Left to Right (QC): 6 Sit to Lying (QC): 6 Sit to Stand (QC): 5 Chair/Gzg-tb-Plpai Xfer(QC): 6 Car Transfer (QC): 4 Gait Training Does the Patient Walk?: Yes Distance: 750' Walk 10 feet (QC): 5 Walk 50 ft with 2 Turns(QC): 5 Walk 150 ft (QC): 5 Walking 10ft/uneven surface-QC: 4 Gait Persons Needed: 1 Gait Assistive Device: None Wheelchair Training Does the Pt Use a Wheelchair?: No Wheel 50 ft with 2 turns (QC): 9 Wheel 150 ft (QC): 9 Stair Training Stair Training: Handrails/: 2 handrails #of Steps: 4 1 Step (curb) (QC): 5 4 Steps (QC): 5 12 Steps (QC): 88 Stairs: Pattern: Step to Balance Picking up an Object (QC): 4 ADL-Treatment Eating (QC): 6 Oral Hygiene (QC): 7 Shower/Bathe Self (QC): 4 (SBA, pt stands in shower to complete, all tasks with IND.) Upper Body Dressing (QC): 6 (IND in bathroom. ) Lower Body Dressing (QC): 4 (SUP on stool, good balance noted.) On/Off Footwear (QC): 4 (SUP) Toileting Hygiene (QC): 4 (SUP, completes in shower with IND.) Toilet Transfer (QC): 6 (IND.) Assessment/Plan Assessment and Plan Assess & Plan/Chief Complaint Assessment: CVA w/aphasia and receptive aphasia New onset AF s/p tPA 11/22/19 no OAC until 12/06/19 HTN HLP Obesity [place] Plan: IRF protocol ASA Statin Monitor closely 11/30/19: In patient rehab protocol Cardiology appreciated Fall risk prevention 12/01/19: Improved cognition Continue intensive therapy DC Friday (1) CVA (cerebral vascular accident) (2) Atrial fibrillation (3) Hypertension (4) Hyperlipemia (5) Aphasia (6) Receptive aphasia (7) Confusion (8) Presbycusis of both ears (9) Risk for falls (10) Received intravenous tissue plasminogen activator (tPA) in emergency department KERMIT EVANS DO Dec 01, 2019 09:37
[2019-12-01] MEDS ORDERED: ATOR10TA66 PO (09:40)
[2019-12-01] MEDS ORDERED: LISI40TA PO (09:40)
[2019-12-01] MEDS ORDERED: MTP100TCR PO (09:40)
[2019-12-01] MEDS ORDERED: HYDR25TA4 PO (09:40)
--- NOTE | 2019-12-01 10:21 | Speech Therapy Daily Note ---
Speech Daily Progress Note Subjective Date Seen by Provider: Dec 01, 2019 Time Seen by Provider: 00:30 Patient was sitting up in her chair working a 100 piece puzzle seemingly without difficulty. Patient agreed to therapy. Objective Patient completed a matching exercise with a set of articulation cards. Patient was able to match the cards with minimal direction. She was able to name the cards, however she was unable to follow through with using the word in a sentence. Assessment Assessment Current Status: Fair Progress Treatment Plan Continue Plan of Care Speech Short Term Goals Short Term Goals Short Term Goals 1) Patient will complete memory tasks related to her daily needs at 80% or greater with minimal cues. 2) Patient will complete problem solving tasks related to her daily needs at 80% or greater with minimal cues. 3) Patient will complete safety awareness tasks related to her daily needs at 80% or greater with minimal cues. 4) Patient will complete confrontational naming tasks at 80% or greater with minimal cues. Speech Rn Allergy Goals Jail Goals Patient will improve her cognitive-communication skills in order to communicate her wants/needs effectively. Speech-Plan Patient/Family Goals Patient/Family Goals: Patient plans on returning to her home where she lives with her . Treatment Plan Speech Therapy Treatment Plan: Continue Plan of Care Patient's automatic speech responses are improving with speech expansion and screw down noted as well. Treatment Duration: Dec 15, 2019 Frequency: 4 times per week Estimated Hrs Per Day: .5 hour per day Rehab Potential: Fair Barriers to Learning: Patient's aphasia Pt/Family Agrees to Plan: Yes Safety Risks/Education Teaching Recipient: Patient Teaching Methods: Demonstration, Discussion Response to Teaching: Verbalize Understanding, Return Demonstration Education Topics Provided: Continued safety within the room Time Speech Therapy Time In: 09:30 Speech Therapy Time Out: 10:00 Total Billed Time: 30 Billed Treatment Time 1JASVIR [address] ST Dec 01, 2019 10:21
--- NOTE | 2019-12-01 12:07 | Physical Therapy Daily Note ---
PT Daily Note-Current Subjective Pt sitting in recliner working on puzzle upon arrival. Pt agrees to PT. Pt still demonstrates difficulty with aphasia. Pain Location: No Pain Reported Mental Status Patient Orientation: Person, Non-Verbal/Aphasic Transfers SCALE: Activities may be completed with or without assistive devices. 9-Jlenileiwl-exhqdtq completes the activity by him/herself with no assistance from a helper. 5-Set-up or Clean-up Assistance-helper sets up or cleans up; patient completes activity. [place] assists only prior to or following the activity. 4-Supervision or Touching Assistance-helper provides verbal cues and/or touching/steadying and/or contact guard assistance as patient completes activity. Assistance may be provided throughout the activity or intermittently. 3-Partial/Moderate Assistance-helper does LESS THAN HALF the effort. [place] lifts, holds or supports trunk or limbs, but provides less than half the effort. 2-Substantial/Maximal Assistance-helper does MORE THAN HALF the effort. [place] lifts or holds trunk or limbs and provides more than half the effort. 0-Zypbrfnml-nwdwcw does ALL the effort. Patient does none of the effort to complete the activity. Or, the assistance of 2 or more helpers is required for the patient to complete the activity. If activity was not attempted, code reason: 7-Patient Refused. 9-Not Applicable-not attempted and the patient did not perform the activity before the current illness, exacerbation or injury. 10-Not Attempted due to Environmental Limitations-(lack of equipment, weather restraints, etc.). 88-Not Attempted due to Medical Conditions or Safety Concerns. Sit to Stand (QC): 6 Weight Bearing Full Weight Bearing Full Weight Bearing Gait Training Does the Patient Walk?: Yes Distance: 450' x2 Walk 10 feet (QC): 6 Walk 50 ft with 2 Turns(QC): 5 Walk 150 ft (QC): 5 Gait Persons Needed: 1 Gait Assistive Device: None Wheelchair Training Does the Pt Use a Wheelchair?: No Stair Training Stair Training: Handrails/: 1 handrail #of Steps: 12 1 Step (curb) (QC): 6 4 Steps (QC): 5 12 Steps (QC): 5 Stairs: Pattern: Reciprocal Exercises NuStep Minutes: 15 NuStep Workload: 5 Treatments TF to standing and amb. in hallway, completes 3 sets of steps as well as 15m on NuStep at WL 5. Amb. again in hallway before returning to room to rest, all needs met with call light next to pt. Assessment Current Status: Good Progress Pt is still impulsive at times, given VC for safety. Pt still demonstrates some frustration with difficulty on communication. PT Short Term Goals Short Term Goals Time Frame: Dec 06, 2019 Roll Left & Right: 6 Sit to lyin Lying to sitting on side of be: 6 Sit to stand: 6 Chair/peu-ia-kdhco transfer: 6 Toilet transfer: 6 Car transfer: 5 Walk 10 feet: 5 Walk 50 feet with two turns: 5 Walk 150 feet: 5 1 step (curb): 5 4 steps: 5 PT Intermediate Goals Dyeing Machine Tender Goals PT Intermediate Goals Time Frame: Dec 13, 2019 Roll Left & Right (QC): 6 Sit to Lying (QC): 6 Lying-Sitting on Side/Bed(QC): 6 Sit to Stand (QC): 6 Chair/Ses-io-Mqaqr Xfer(QC): 6 Toilet Transfer (QC): 6 Car Transfer (QC): 6 Does the Patient Walk: Yes Walk 10 feet (QC): 6 Walk 50ft with 2 Turns (QC): 6 Walk 150 ft (QC): 6 Walking 10ft on Uneven Surface: 6 1 Step (curb) (QC): 6 4 Steps (QC): 6 12 Steps (QC): 6 Picking up an Object (QC): 6 Does the Pt use WC or Scooter?: No Wheel 50 feet with 2 turns (QC: 9 Wheel 150 feet: 9 PT Plan Problem List Problem List: Safety Treatment/Plan Treatment Plan: Continue Plan of Care Treatment Plan: Education, Functional Activity [place], Functional Strength, Gait, Safety, Therapeutic Exercise, Transfers Treatment Duration: Dec 13, 2019 Frequency: At least 5 of 7 days/Wk (IRF) Estimated Hrs Per Day: 1 hour per day Patient and/or Family Agrees t: Yes Safety Risks/Education Patient Education: Gait Training, Transfer Techniques, Steps, Correct Positioning, Safety Issues Teaching Recipient: Patient Teaching Methods: Discussion Response to Teaching: Verbalize Understanding Time/GCodes Time In: 1045 Time Out: 1130 Total Billed Treatment Time: 45 Total Billed Treatment 1, GT (15m), EX (15m) & FA (15m) JAX MCNEAL STAFFING COORDINATOR Dec 01, 2019 12:07
--- NOTE | 2019-12-01 15:50 | NUR ---
CM/SS PATIENT CARE CONFERENCE Reviewed Summary with patient and spouse Latrell, both are in agreement to target discharge of Friday, December 04, 2019. OP THERAPY: Coordinated OP Speech Language Therapy at their request with [facility] and noted details on discharge orders/instructions. First appointment is 12/07/19 at 0945 and both understand the location at [facility]; [address] 4th floor, [address]. Contact information provided for their convenience. IMM2 will be presented timely, no other discharge planning anticipated unless situation changes to warrant.
--- NOTE | 2019-12-01 15:58 | Physical Therapy Daily Note ---
PT Daily Note-Current Subjective Pt sitting in recliner with Sp present upon arrival. Pt agrees to PT. Pain Location: No Pain Reported Mental Status Patient Orientation: Person, Place, Non-Verbal/Aphasic Transfers SCALE: Activities may be completed with or without assistive devices. 3-Eprjmauewk-cqvttqh completes the activity by him/herself with no assistance from a helper. 5-Set-up or Clean-up Assistance-helper sets up or cleans up; patient completes activity. [place] assists only prior to or following the activity. 4-Supervision or Touching Assistance-helper provides verbal cues and/or touching/steadying and/or contact guard assistance as patient completes activity. Assistance may be provided throughout the activity or intermittently. 3-Partial/Moderate Assistance-helper does LESS THAN HALF the effort. [place] lifts, holds or supports trunk or limbs, but provides less than half the effort. 2-Substantial/Maximal Assistance-helper does MORE THAN HALF the effort. [place] lifts or holds trunk or limbs and provides more than half the effort. 3-Eerscdycc-ctcgsh does ALL the effort. Patient does none of the effort to complete the activity. Or, the assistance of 2 or more helpers is required for the patient to complete the activity. If activity was not attempted, code reason: 7-Patient Refused. 9-Not Applicable-not attempted and the patient did not perform the activity before the current illness, exacerbation or injury. 10-Not Attempted due to Environmental Limitations-(lack of equipment, weather restraints, etc.). 88-Not Attempted due to Medical Conditions or Safety Concerns. Sit to Stand (QC): 6 Car Transfer (QC): 6 Weight Bearing Full Weight Bearing Full Weight Bearing Gait Training Does the Patient Walk?: Yes Distance: 150' x2 Walk 10 feet (QC): 5 Walk 50 ft with 2 Turns(QC): 5 Walk 150 ft (QC): 5 Gait Persons Needed: 1 Gait Assistive Device: None Wheelchair Training Does the Pt Use a Wheelchair?: No Stair Training Stair Training: Handrails/: 1 handrail #of Steps: 16 1 Step (curb) (QC): 5 4 Steps (QC): 5 12 Steps (QC): 5 Stairs: Pattern: Reciprocal Treatments TF to standing, discussion w/ SP & pt regarding voicing simple sentences like who she was and where she lived. Amb. in hallway, completes Car TF x2 & 4 sets of 4 steps. Amb. in hallway before returning to room to rest in recliner visiting with Sp. Assessment Current Status: Good Progress Pt tosha. tx well. Sp happy with progress. PT Short Term Goals Short Term Goals Time Frame: Dec 06, 2019 Roll Left & Right: 6 Sit to lyin Lying to sitting on side of be: 6 Sit to stand: 6 Chair/jxo-tx-gyzky transfer: 6 Toilet transfer: 6 Car transfer: 5 Walk 10 feet: 5 Walk 50 feet with two turns: 5 Walk 150 feet: 5 1 step (curb): 5 4 steps: 5 PT Tucking Machine Operator Goals [facility] Goals PT Tucking Machine Operator Goals Time Frame: Dec 13, 2019 Roll Left & Right (QC): 6 Sit to Lying (QC): 6 Lying-Sitting on Side/Bed(QC): 6 Sit to Stand (QC): 6 Chair/Ehg-de[place]Uambl Xfer(QC): 6 Toilet Transfer (QC): 6 Car Transfer (QC): 6 Does the Patient Walk: Yes Walk 10 feet (QC): 6 Walk 50ft with 2 Turns (QC): 6 Walk 150 ft (QC): 6 Walking 10ft on Uneven Surface: 6 1 Step (curb) (QC): 6 4 Steps (QC): 6 12 Steps (QC): 6 Picking up an Object (QC): 6 Does the Pt use WC or Scooter?: No Wheel 50 feet with 2 turns (QC: 9 Wheel 150 feet: 9 PT Plan Problem List Problem List: Safety Treatment/Plan Treatment Plan: Continue Plan of Care Treatment Plan: Education, Functional Activity [place], Functional Strength, Gait, Safety, Therapeutic Exercise, Transfers Treatment Duration: Dec 13, 2019 Frequency: At least 5 of 7 days/Wk (IRF) Estimated Hrs Per Day: 1 hour per day Patient and/or Family Agrees t: Yes Safety Risks/Education Patient Education: Gait Training, Steps, Correct Positioning, Safety Issues Teaching Recipient: Patient Teaching Methods: Discussion Response to Teaching: Verbalize Understanding Time/GCodes Time In: 1330 Time Out: 1400 Total Billed Treatment Time: 30 Total Billed Treatment 1, GT (10m) & FA (20m) JAX MCNEAL COUNTER HELP Dec 01, 2019 15:58
[2019-12-01 18:00] VITALS: BP 146/68
--- NOTE | 2019-12-01 19:25 | NUR ---
bedside report received from RADHA POWERS, assume care of pt
[2019-12-01] MEDS: MELATONIN 3 MG TABLET PO PRN (20:52)
--- NOTE | 2019-12-01 20:52 | NUR ---
pt took Colace & miralax refused Senokot, took melatonin for rest
[2019-12-02 05:33] VITALS: BP 111/55
[2019-12-02] MEDS: SENNA W/DOCUSATE (SENOKOT S) TABLET PO SCH ×2 (08:15→21:16)
[2019-12-02] MEDS: lisINopril 10 MG (PRINIVIL) TABLET PO SCH (08:15)
[2019-12-02] MEDS: OMEGA 3 (FISH OIL) 1000 MG CAP PO SCH (08:15)
[2019-12-02] MEDS: ASPIRIN E.C. 81 MG (ECOTRIN) TAB PO SCH (08:15)
[2019-12-02] MEDS: SOTALOL 80 MG (BETAPACE) TAB PO SCH (08:15)
[2019-12-02] MEDS: DOCUSATE SODIUM 100 MG (COLACE) CAP PO SCH ×2 (08:16→21:16)
--- NOTE | 2019-12-02 08:32 | Cardiology Progress Note ---
Subjective Date Seen by Provider: Dec 02, 2019 Time Seen by Provider: 08:32 Subjective/Events-last exam Patient is sitting up in chair, denies any chest pain. Review of Systems General: No Chills, No Night Sweats, No Fatigue, No Malaise, No Appetite, No Other HEENT: No Head Aches, No Visual Changes, No Eye Pain, No Ear Pain, No Dysphasia, No Sinus Congestion, No Post Nasal Drip, No Sore Throat, No Other Pulmonary: No Dyspnea, No Cough, No Pleuritic Chest Pain, No Other Cardiovascular: No: Chest Pain, Palpitations, Orthopnea, Paroxysmal Noc. Dyspnea, Edema, Lt Headedness, Other Objective-Cardiology Exam Last Set of Vital Signs Vital Signs 12/02/19 12/02/19 05:33 08:15 Temp 36.2 Pulse 70 Resp 16 B/P (MAP) 111/55 (73) Pulse Ox 96 O2 Delivery Room Air Capillary Refill : Less Than 3 Seconds I&O Intake and Output 12/02/19 00:00 Intake Total 730 ml Balance 730 ml Intake Oral 730 ml # Voids 6 # Bowel Movements 1 General: Alert, Oriented X3, Cooperative HEENT: Atraumatic, PERRLA Neck: Supple, No JVD, No Thyromegaly Lungs: Clear to Auscultation, Normal Air Movement Heart: Normal S1, Normal S2, No Murmurs, Other (bradycardic) Abdomen: Normal Bowel Sounds, Soft, No Tenderness, No Hepatosplenomegaly, No Masses Extremities: No Clubbing, No Cyanosis, No Edema, Normal Pulses, No Tendern ess/Swelling Skin: No Rashes, No Significant Lesion Neuro: Normal Gait, Other (expressive aphasia) Psych/Mental Status: Mental Status NL, Mood NL A/P-Cardiology Admission Diagnosis CVA PAF HTN HLP Assessment/Plan CVA, 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 Currently maintained on ASA. Continues to have expressive aphasia, continue with PT/OT PAF, diagnosed after CVA. Maintained on Sotalol and currently in SR. Will place patient on telemetry and continue to monitor. Will need to start OAC after December 06, 2019, start Lovenox if patient goes back into atrial fibrillation before then. HTN, controlled, continue to monitor. HLP- maintained on statin. Patient was seen and evaluated with Harleen, examination performed, management plan was discussed, agree with the current scribed note, I made few changes to the note using Italic font Still having slurred speech, lipid pressure is controlled Continue on current medication continue to monitor, planning to start oral anti coagulation on December 06, 2019 Clinical Quality Measures DVT/VTE Risk/Contraindication: Risk Factor Score Per Nursin RFS Level Per Nursing on Admit: 4+=Very High Contraindications-Pharm: Other *list below* Other: tpa 11/22/19 HARLEEN DICKSON Dec 02, 2019 08:32 JENS LOGAN MD Dec 02, 2019 09:09
[2019-12-02] MEDS: polyethylene glycoL POWDER 17 GM (MIRALAX) PACK PO SCH ×2 (09:00→21:16)
--- NOTE | 2019-12-02 10:03 | Occupational Ther Daily Note ---
OT Current Status-Daily Note Subjective Pt alert sitting in recliner. Pt agreed to therapy, no c/o pain reported. Mental Status/Objective Patient Orientation: Person, Place, Non-Verbal/Aphasic, Time, Situation ADL-Treatment Pt made known that shower, changing clothing and oral care has already been completed. Pt up ad jonathan in room. Therapy Code Descriptions/Definitions Functional [place] Measure: 0=Not Assessed/NA 4=Minimal Assistance 1=Total Assistance 5=Supervision or Setup 2=Maximal Assistance 6=Modified [place] 3=Moderate Assistance 7=Complete IndependenceSCALE: Activities may be completed with or without assistive devices. 5-Sjiucgsgvp-tjoqcch completes the activity by him/herself with no assistance from a helper. 5-Set-up or Clean-up Assistance-helper sets up or cleans up; patient completes activity. [place] assists only prior to or following the activity. 4-Supervision or Touching Assistance-helper provides verbal cues and/or t ouching/steadying and/or contact guard assistance as patient completes activity. Assistance may be provided throughout the activity or intermittently. 3-Partial/Moderate Assistance-helper does LESS THAN HALF the effort. [place] lifts, holds or supports trunk or limbs, but provides less than half the effort. 2-Substantial/Maximal Assistance-helper does MORE THAN HALF the effort. [place] lifts or holds trunk or limbs and provides more than half the effort. 3-Iwulkgrvz-coicxk does ALL the effort. Patient does none of the effort to complete the activity. Or, the assistance of 2 or more helpers is required for the patient to complete the activity. If activity was not attempted, code reason: 7-Patient Refused. 9-Not Applicable-not attempted and the patient did not perform the activity before the current illness, exacerbation or injury. 10-Not Attempted due to Environmental Limitations-(lack of equipment, weather restraints, etc.). 88-Not Attempted due to Medical Conditions or Safety Concerns. Other Treatment Pt sit to stand from recliner. Ambulated from room to [facility] and sat at chair. Working on receptive and expressive tasks to increase pt's ability to complete 2 or more step directions. Pt completed 1 step direction worksheet with skilled instruction from [place] for following simple task. Pt required verbal and object cues to complete 1 to 2 step written directions. Pt is more successful with motoric tasks with visual prompts/model when completing 1-2 step directions. During written directions pt would read out loud and switch words, ie jamul for triangle, triangle for rectangle. When attempting to redirect object cues for correct shape increased understanding of direction. Pt able to complete clothespin fine motor task to sequence and match when done by self though when introduced 2nd person for turn taking, pt required model to complete initially. After session, pt sitting in recliner with call light/phone in reach. All needs met in room. OT Document Imaging Specialist Goals Document Imaging Specialist Goals Time Frame: Dec 13, 2019 Eating (QC): 6 Oral Hygiene (QC): 6 Toileting Hygiene (QC): 6 Shower/Bathe Self (QC): 6 Upper Body Dressing (QC): 6 Lower Body Dressing (QC): 6 On/Off Footwear (QC): 6 Additional Goals: 1-Demonstrate ADL Tasks, 2-Verbalize Understanding, 3- ImproveStrength/[place] 1=Demonstrate adherence to instructed precautions during ADL tasks. 2=Patient will verbalize/demonstrate understanding of assistive devices/modifications for ADL. 3=Patient will improve strength/tolerance for activity to enable patient to perform ADL's. OT Education/Plan Problem List/Assessment Assessment: Impaired Cognition Discharge Recommendations Plan/Recommendations: Continue POC Treatment Plan/Plan of Care Patient would benefit from OT for education, treatment and training to promote independence in ADL's, mobility, safety and/or upper extremity function for ADL's. Plan of Care: ADL Retraining, Cognitive Retraining, Functional Mobility Treatment Duration: Dec 13, 2019 Frequency: At least 5 of 7 days/Wk (IRF) Estimated Hrs Per Day: 1.5 hours per day Agreement: Yes Rehab Potential: Fair Time/GCodes Start Time: 09:00 Stop Time: 10:00 Total Time Billed (hr/min): 60 Billed Treatment Time 1 visit-FA 4 (60 min) BOB GAMINO Dec 02, 2019 10:03
--- NOTE | 2019-12-02 11:13 | PM&R Progress Note ---
Subjective HPI/CC On Admission Date Seen by Provider: Dec 02, 2019 Time Seen by Provider: 11:15 Subjective/Events-last exam 12/02/19: DC on Friday works with her for cognitive therapy when she is not in formal rehab therapy No pain reported 12/01/19: Pt is having a bit of improved cognition with speech therapy Still will need 24/7 supervision Pt is very impulsive DC planning Pt had a good night No falls Working with OT and speech therapy for cognitive communication skills do to aphasia Checked labs Dr. [place] appreciated No AFIB issues Checked meds and labs Conferred with RN Reviewed therapy notes Review of Systems General: Fatigue, Malaise Neurological: Weakness, Incoordination, Change in speech Objective Exam Vital Signs Vital Signs Date Time Temp Pulse Resp B/P (MAP) Pulse Ox O2 Delivery O2 Flow Rate FiO2 12/03/19 01:00 50 12/02/19 21:00 Room Air 12/02/19 16:45 36.5 16 125/58 (80) 96 Capillary Refill : Less Than 3 Seconds General Appearance: No Apparent Distress, WD/WN, Chronically ill, Obese HEENT: PERRL/EOMI, Normal ENT Inspection, Pharynx Normal Neck: Full Range of Motion, Normal Inspection, Non Tender, Supple, Carotid Bruit Respiratory: Chest Non Tender, Lungs Clear, Normal Breath Sounds, No Accessory Muscle Use, No Respiratory Distress Cardiovascular: Regular Rate, Rhythm, No Edema, No Gallop, No JVD, No Murmur, Normal Peripheral Pulses Gastrointestinal: Normal Bowel Sounds, No Organomegaly, No Pulsatile Mass, Non Tender, Soft Back: Normal Inspection, No CVA Tenderness, No Vertebral Tenderness Extremity: Normal Capillary Refill, Normal Inspection, Normal Range of Motion, Non Tender, No Calf Tenderness, No Pedal Edema Neurologic/Psychiatric: Alert, Oriented x3, No Motor/Sensory Deficits, Normal Mood/Affect, trolley operator II-XII Norm as Tested, Abnormal Gait, Aphasia (partial with receptive aphasia), Motor Weakness (generalized lower legs) Skin: Normal Color, Warm/Dry Lymphatic: No Adenopathy Results/Procedures Lab Patient resulted labs reviewed. FIM Transfers Therapy Code Descriptions/Definitions Functional [place] Measure: 0=Not Assessed/NA 4=Minimal Assistance 1=Total Assistance 5=Supervision or Setup 2=Maximal Assistance 6=Modified [place] 3=Moderate Assistance 7=Complete IndependenceSCALE: Activities may be completed with or without assistive devices. 7-Eowjxtslwg-vpjxsjh completes the activity by him/herself with no assistance from a helper. 5-Set-up or Clean-up Assistance-helper sets up or cleans up; patient completes activity. [place] assists only prior to or following the activity. 4-Supervision or Touching Assistance-helper provides verbal cues and/or touching/steadying and/or contact guard assistance as patient completes activity. Assistance may be provided throughout the activity or intermittently. 3-Partial/Moderate Assistance-helper does LESS THAN HALF the effort. [place] lifts, holds or supports trunk or limbs, but provides less than half the effort. 2-Substantial/Maximal Assistance-helper does MORE THAN HALF the effort. [place] lifts or holds trunk or limbs and provides more than half the effort. 5-Oogeuvpjv-dsmtsa does ALL the effort. Patient does none of the effort to complete the activity. Or, the assistance of 2 or more helpers is required for the patient to complete the activity. If activity was not attempted, code reason: 7-Patient Refused. 9-Not Applicable-not attempted and the patient did not perform the activity before the current illness, exacerbation or injury. 10-Not Attempted due to Environmental Limitations-(lack of equipment, weather restraints, etc.). 88-Not Attempted due to Medical Conditions or Safety Concerns. Roll Left to Right (QC): 6 Sit to Lying (QC): 6 Sit to Stand (QC): 6 Chair/Pvi-tf-Vyybu Xfer(QC): 6 Car Transfer (QC): 6 Gait Training Does the Patient Walk?: Yes Distance: 150' x2 Walk 10 feet (QC): 5 Walk 50 ft with 2 Turns(QC): 5 Walk 150 ft (QC): 5 Walking 10ft/uneven surface-QC: 4 Gait Persons Needed: 1 Gait Assistive Device: None Wheelchair Training Does the Pt Use a Wheelchair?: No Wheel 50 ft with 2 turns (QC): 9 Wheel 150 ft (QC): 9 Stair Training Stair Training: Handrails/: 1 handrail #of Steps: 16 1 Step (curb) (QC): 5 4 Steps (QC): 5 12 Steps (QC): 5 Stairs: Pattern: Reciprocal Balance Picking up an Object (QC): 4 ADL-Treatment Eating (QC): 6 Oral Hygiene (QC): 7 Shower/Bathe Self (QC): 4 (SBA, pt stands in shower to complete, all tasks with IND.) Upper Body Dressing (QC): 6 (IND in bathroom. ) Lower Body Dressing (QC): 4 (SUP on stool, good balance noted.) On/Off Footwear (QC): 4 (SUP) Toileting Hygiene (QC): 4 (SUP, completes in shower with IND.) Toilet Transfer (QC): 6 (IND.) Assessment/Plan Assessment and Plan Assess & Plan/Chief Complaint Assessment: CVA w/aphasia and receptive aphasia New onset AF s/p tPA 11/22/19 no OAC until 12/06/19 HTN HLP Obesity [place] Plan: IRF protocol ASA Statin Monitor closely 11/30/19: In patient rehab protocol Cardiology appreciated Fall risk prevention 12/01/19: Improved cognition Continue intensive therapy DC Friday12/02/19: Outpatient PT at DC Monitor BP (1) CVA (cerebral vascular accident) (2) Atrial fibrillation (3) Hypertension (4) Hyperlipemia (5) Aphasia (6) Receptive aphasia (7) Confusion (8) Presbycusis of both ears (9) Risk for falls (10) Received intravenous tissue plasminogen activator (tPA) in emergency department KERMIT EVANS DO Dec 02, 2019 11:13
--- NOTE | 2019-12-02 12:08 | Physical Therapy Daily Note ---
PT Daily Note-Current Subjective Pt sitting in recliner upon arrival. Pt agrees to PT. Pain Location: No Pain Reported Mental Status Patient Orientation: Person, Non-Verbal/Aphasic Transfers SCALE: Activities may be completed with or without assistive devices. 8-Kphdhgkyrf-bosjhgz completes the activity by him/herself with no assistance from a helper. 5-Set-up or Clean-up Assistance-helper sets up or cleans up; patient completes activity. [place] assists only prior to or following the activity. 4-Supervision or Touching Assistance-helper provides verbal cues and/or touching/steadying and/or contact guard assistance as patient completes activity. Assistance may be provided throughout the activity or intermittently. 3-Partial/Moderate Assistance-helper does LESS THAN HALF the effort. [place] lifts, holds or supports trunk or limbs, but provides less than half the effort. 2-Substantial/Maximal Assistance-helper does MORE THAN HALF the effort. [place] lifts or holds trunk or limbs and provides more than half the effort. 3-Ypwvnnrzz-mjqqcn does ALL the effort. Patient does none of the effort to complete the activity. Or, the assistance of 2 or more helpers is required for the patient to complete the activity. If activity was not attempted, code reason: 7-Patient Refused. 9-Not Applicable-not attempted and the patient did not perform the activity before the current illness, exacerbation or injury. 10-Not Attempted due to Environmental Limitations-(lack of equipment, weather restraints, etc.). 88-Not Attempted due to Medical Conditions or Safety Concerns. Sit to Stand (QC): 6 Weight Bearing Full Weight Bearing Full Weight Bearing Gait Training Does the Patient Walk?: Yes Distance: 450', 750', 500', 150' Walk 10 feet (QC): 6 Walk 50 ft with 2 Turns(QC): 6 Walk 150 ft (QC): 6 Gait Persons Needed: 1 Gait Assistive Device: None Wheelchair Training Does the Pt Use a Wheelchair?: No Stair Training Stair Training: Handrails/: 1 handrail #of Steps: 12 1 Step (curb) (QC): 6 4 Steps (QC): 6 12 Steps (QC): 6 Stairs: Pattern: Reciprocal Treatments TF to standing and amb. in hallway. Amb on main floor of hospital to check activity tolerance, returns to ARU & completes 3 sets of steps. Pt returns to room and rest in recliner at end of tx with all needs met, call light in hand. Assessment Current Status: Good Progress Pt vitor. tx well, just working on return/improvement of cognition/problem solving & speech. PT Short Term Goals Short Term Goals Time Frame: Dec 06, 2019 Roll Left & Right: 6 Sit to lyin Lying to sitting on side of be: 6 Sit to stand: 6 Chair/dyr-wd-owrwu transfer: 6 Toilet transfer: 6 Car transfer: 5 Walk 10 feet: 5 Walk 50 feet with two turns: 5 Walk 150 feet: 5 1 step (curb): 5 4 steps: 5 PT Fpc Goals Fpc Goals PT Fpc Goals Time Frame: Dec 13, 2019 Roll Left & Right (QC): 6 Sit to Lying (QC): 6 Lying-Sitting on Side/Bed(QC): 6 Sit to Stand (QC): 6 Chair/Rup-qz-Isuro Xfer(QC): 6 Toilet Transfer (QC): 6 Car Transfer (QC): 6 Does the Patient Walk: Yes Walk 10 feet (QC): 6 Walk 50ft with 2 Turns (QC): 6 Walk 150 ft (QC): 6 Walking 10ft on Uneven Surface: 6 1 Step (curb) (QC): 6 4 Steps (QC): 6 12 Steps (QC): 6 Picking up an Object (QC): 6 Does the Pt use WC or Scooter?: No Wheel 50 feet with 2 turns (QC: 9 Wheel 150 feet: 9 PT Plan Problem List Problem List: Safety Treatment/Plan Treatment Plan: Continue Plan of Care Treatment Plan: Education, Functional Activity [place], Functional Strength, Gait, Safety, Therapeutic Exercise, Transfers Treatment Duration: Dec 13, 2019 Frequency: At least 5 of 7 days/Wk (IRF) Estimated Hrs Per Day: 1 hour per day Patient and/or Family Agrees t: Yes Safety Risks/Education Patient Education: Gait Training, Steps, Correct Positioning, Safety Issues Teaching Recipient: Patient Teaching Methods: Discussion Response to Teaching: Reinforcement Needed Time/GCodes Time In: 1115 Time Out: 1200 Total Billed Treatment Time: 45 Total Billed Treatment 1, GT x2 (30m) & FA (15m) JAX MCNEAL GILL TENDER Dec 02, 2019 12:08
--- NOTE | 2019-12-02 14:26 | Occupational Ther Daily Note ---
OT Current Status-Daily Note Subjective Pt alert, sitting in recliner when OT entered. No c/o pain. Pt agreed to therapy. Mental Status/Objective Patient Orientation: Person, Place, Time ADL-Treatment Therapy Code Descriptions/Definitions Functional [place] Measure: 0=Not Assessed/NA 4=Minimal Assistance 1=Total Assistance 5=Supervision or Setup 2=Maximal Assistance 6=Modified [place] 3=Moderate Assistance 7=Complete IndependenceSCALE: Activities may be completed with or without assistive devices. 5-Lsuoorqcqg-ldrmiwp completes the activity by him/herself with no assistance from a helper. 5-Set-up or Clean-up Assistance-helper sets up or cleans up; patient completes activity. [place] assists only prior to or following the activity. 4-Supervision or Touching Assistance-helper provides verbal cues and/or touching/steadying and/or contact guard assistance as patient completes activity. Assistance may be provided throughout the activity or intermittently. 3-Partial/Moderate Assistance-helper does LESS THAN HALF the effort. [place] lifts, holds or supports trunk or limbs, but provides less than half the effort. 2-Substantial/Maximal Assistance-helper does MORE THAN HALF the effort. [place] lifts or holds trunk or limbs and provides more than half the effort. 5-Spocqyxkd-rvdvkl does ALL the effort. Patient does none of the effort to complete the activity. Or, the assistance of 2 or more helpers is required for the patient to complete the activity. If activity was not attempted, code reason: 7-Patient Refused. 9-Not Applicable-not attempted and the patient did not perform the activity before the current illness, exacerbation or injury. 10-Not Attempted due to Environmental Limitations-(lack of equipment, weather restraints, etc.). 88-Not Attempted due to Medical Conditions or Safety Concerns. Other Treatment Pt completed 3 fine/gross motor and visual scanning task with pegs while following picture format. Pt required skilled instruction to complete task, pt was able to return demonstration. Pt is able to complete task with simple directions and matching set. After therapy pt sitting in recliner. Call light/phone in reach. All needs met. OT Caterer Helper Goals Usp Goals Time Frame: Dec 13, 2019 Eating (QC): 6 Oral Hygiene (QC): 6 Toileting Hygiene (QC): 6 Shower/Bathe Self (QC): 6 Upper Body Dressing (QC): 6 Lower Body Dressing (QC): 6 On/Off Footwear (QC): 6 Additional Goals: 1-Demonstrate ADL Tasks, 2-Verbalize Understanding, 3- ImproveStrength/[place] 1=Demonstrate adherence to instructed precautions during ADL tasks. 2=Patient will verbalize/demonstrate understanding of assistive devices/modifications for ADL. 3=Patient will improve strength/tolerance for activity to enable patient to perform ADL's. OT Education/Plan Problem List/Assessment Assessment: Impaired Cognition Discharge Recommendations Plan/Recommendations: Continue POC Treatment Plan/Plan of Care Patient would benefit from OT for education, treatment and training to promote independence in ADL's, mobility, safety and/or upper extremity function for ADL's. Plan of Care: ADL Retraining, Cognitive Retraining, Functional Mobility Treatment Duration: Dec 13, 2019 Frequency: At least 5 of 7 days/Wk (IRF) Estimated Hrs Per Day: 1.5 hours per day Agreement: Yes Rehab Potential: Fair Time/GCodes Start Time: 13:10 Stop Time: 13:25 Total Time Billed (hr/min): 15 Billed Treatment Time 1 visit-FA 1(15 mins) BOB GAMINO Dec 02, 2019 14:26
--- NOTE | 2019-12-02 14:26 | Speech Therapy Daily Note ---
Speech Daily Progress Note Subjective Date Seen by Provider: Dec 02, 2019 Time Seen by Provider: 00:30 Patient was resting in her recliner when I entered her room. She was alert and participated well. Objective Patient completed a matching memory task with 75% given moderate verbal and/or visual cues. She is noted to perseverate on previous items/pictures. Assessment Assessment Current Status: Fair Progress Treatment Plan Continue Plan of Care Speech Short Term Goals Short Term Goals Short Term Goals 1) Patient will complete memory tasks related to her daily needs at 80% or greater with minimal cues. 2) Patient will complete problem solving tasks related to her daily needs at 80% or greater with minimal cues. 3) Patient will complete safety awareness tasks related to her daily needs at 80% or greater with minimal cues. 4) Patient will complete confrontational naming tasks at 80% or greater with minimal cues. Speech Bird Keeper Goals Penit[facility]iary Goals Patient will improve her cognitive-communication skills in order to communicate her wants/needs effectively. Speech-Plan Patient/Family Goals Patient/Family Goals: Patient is scheduled to return home where she lives with her . Treatment Plan Speech Therapy Treatment Plan: Continue Plan of Care Treatment Duration: Dec 15, 2019 Frequency: 4 times per week Estimated Hrs Per Day: .5 hour per day Rehab Potential: Fair Barriers to Learning: Patient's expresssive aphasia and decreased cognitive level of function Pt/Family Agrees to Plan: Yes Safety Risks/Education Teaching Recipient: Patient Teaching Methods: Demonstration, Discussion Response to Teaching: Verbalize Understanding, Return Demonstration, Reinforcement Needed Education Topics Provided: Continued safety and communication of wants/needs Time Speech Therapy Time In: 10:00 Speech Therapy Time Out: 10:30 Total Billed Time: 30 Billed Treatment Time 1JASVIR BETHAN[address] ST Dec 02, 2019 14:26
--- NOTE | 2019-12-02 14:33 | Physical Therapy Daily Note ---
PT Daily Note-Current Subjective Pt sitting in recliner visiting with Sp upon arrival. Pt agrees to PT. Pain Location: No Pain Reported Mental Status Patient Orientation: Person, Non-Verbal/Aphasic Transfers SCALE: Activities may be completed with or without assistive devices. 3-Oildryoiub-tpxyacx completes the activity by him/herself with no assistance from a helper. 5-Set-up or Clean-up Assistance-helper sets up or cleans up; patient completes activity. [place] assists only prior to or following the activity. 4-Supervision or Touching Assistance-helper provides verbal cues and/or touching/steadying and/or contact guard assistance as patient completes activity. Assistance may be provided throughout the activity or intermittently. 3-Partial/Moderate Assistance-helper does LESS THAN HALF the effort. [place] lifts, holds or supports trunk or limbs, but provides less than half the effort. 2-Substantial/Maximal Assistance-helper does MORE THAN HALF the effort. [place] lifts or holds trunk or limbs and provides more than half the effort. 3-Ujvgzocim-mzsdbi does ALL the effort. Patient does none of the effort to complete the activity. Or, the assistance of 2 or more helpers is required for the patient to complete the activity. If activity was not attempted, code reason: 7-Patient Refused. 9-Not Applicable-not attempted and the patient did not perform the activity before the current illness, exacerbation or injury. 10-Not Attempted due to Environmental Limitations-(lack of equipment, weather restraints, etc.). 88-Not Attempted due to Medical Conditions or Safety Concerns. Sit to Stand (QC): 6 Weight Bearing Full Weight Bearing Full Weight Bearing Gait Training Does the Patient Walk?: Yes Distance: 150' x2 Walk 10 feet (QC): 6 Walk 50 ft with 2 Turns(QC): 6 Walk 150 ft (QC): 6 Gait Persons Needed: 1 Gait Assistive Device: None Wheelchair Training Does the Pt Use a Wheelchair?: No Exercises NuStep Minutes: 15 NuStep Workload: 5 Treatments TF to standing and amb. in hallway. Pt uses NuStep with Sp present as he advises will get seated equipment for home. Pt returns to room with all needs met, call light next to pt. Assessment Current Status: Good Progress Pt tosha. tx well. PT Short Term Goals Short Term Goals Time Frame: Dec 06, 2019 Roll Left & Right: 6 Sit to lyin Lying to sitting on side of be: 6 Sit to stand: 6 Chair/gif-xn-qwgzz transfer: 6 Toilet transfer: 6 Car transfer: 5 Walk 10 feet: 5 Walk 50 feet with two turns: 5 Walk 150 feet: 5 1 step (curb): 5 4 steps: 5 PT Snf Goals Snf Goals PT Snf Goals Time Frame: Dec 13, 2019 Roll Left & Right (QC): 6 Sit to Lying (QC): 6 Lying-Sitting on Side/Bed(QC): 6 Sit to Stand (QC): 6 Chair/Ldj-wt-Zbbvg Xfer(QC): 6 Toilet Transfer (QC): 6 Car Transfer (QC): 6 Does the Patient Walk: Yes Walk 10 feet (QC): 6 Walk 50ft with 2 Turns (QC): 6 Walk 150 ft (QC): 6 Walking 10ft on Uneven Surface: 6 1 Step (curb) (QC): 6 4 Steps (QC): 6 12 Steps (QC): 6 Picking up an Object (QC): 6 Does the Pt use WC or Scooter?: No Wheel 50 feet with 2 turns (QC: 9 Wheel 150 feet: 9 PT Plan Problem List Problem List: Safety Treatment/Plan Treatment Plan: Continue Plan of Care Treatment Plan: Education, Functional Activity [place], Functional Strength, Gait, Safety, Therapeutic Exercise, Transfers Treatment Duration: Dec 13, 2019 Frequency: At least 5 of 7 days/Wk (IRF) Estimated Hrs Per Day: 1 hour per day Patient and/or Family Agrees t: Yes Safety Risks/Education Patient Education: Safety Issues Teaching Recipient: Patient, Significant Other Teaching Methods: Discussion Response to Teaching: Reinforcement Needed Time/GCodes Time In: 1400 Time Out: 1430 Total Billed Treatment Time: 30 Total Billed Treatment 1, GT (15m) & EX (15m) JAX MCNEAL RETAIL STOCK CLERK Dec 02, 2019 14:33
--- NOTE | 2019-12-02 15:08 | NUR ---
Initial Spiritual Care visit made by RADHA Nathan.
[2019-12-02 16:45] VITALS: BP 125/58
[2019-12-03 05:14] VITALS: BP 131/61
[2019-12-03] MEDS ORDERED: ASPI-1238 PO (06:00)
[2019-12-03] MEDS ORDERED: ATOR40TA PO (06:00)
[2019-12-03] MEDS ORDERED: LISI10TA2 PO (06:00)
[2019-12-03] MEDS ORDERED: STL80T PO (06:00)
[2019-12-03] MEDS ORDERED: APIX5TAB PO (06:03)
[2019-12-03 08:00] VITALS: BP 165/70
[2019-12-03] MEDS: polyethylene glycoL POWDER 17 GM (MIRALAX) PACK PO SCH ×2 (09:22→20:57)
[2019-12-03] MEDS: ASPIRIN E.C. 81 MG (ECOTRIN) TAB PO SCH (09:22)
[2019-12-03] MEDS: OMEGA 3 (FISH OIL) 1000 MG CAP PO SCH (09:22)
[2019-12-03] MEDS: SENNA W/DOCUSATE (SENOKOT S) TABLET PO SCH ×2 (09:22→20:57)
[2019-12-03] MEDS: DOCUSATE SODIUM 100 MG (COLACE) CAP PO SCH ×2 (09:22→20:57)
[2019-12-03] MEDS: lisINopril 10 MG (PRINIVIL) TABLET PO SCH (09:22)
[2019-12-03] MEDS: SOTALOL 80 MG (BETAPACE) TAB PO SCH (09:22)
--- NOTE | 2019-12-03 09:35 | PM&R Progress Note ---
Subjective HPI/CC On Admission Date Seen by Provider: Dec 03, 2019 Time Seen by Provider: 09:30 Subjective/Events-last exam 12/03/19: DC planned for today OAC will be started on Friday, sent Rx to pharmacy No falls Aphasia continues 12/02/19: DC on Friday works with her for cognitive therapy when she is not in formal rehab therapy No pain reported 12/01/19: Pt is having a bit of improved cognition with speech therapy Still will need 24/7 supervision Pt is very impulsive DC planning Pt had a good night No falls Working with OT and speech therapy for cognitive communication skills do to aphasia Checked labs Dr. Arambula appreciated No AFIB issues Checked meds and labs Conferred with RN Reviewed therapy notes Review of Systems General: Fatigue, Malaise Neurological: Change in speech, Confusion Objective Exam Vital Signs Vital Signs Date Time Temp Pulse Resp B/P (MAP) Pulse Ox O2 Delivery O2 Flow Rate FiO2 12/04/19 05:13 36.0 65 18 150/68 (95) 98 Room Air Capillary Refill : Less Than 3 Seconds General Appearance: No Apparent Distress, WD/WN, Chronically ill, Obese HEENT: PERRL/EOMI, Normal ENT Inspection, Pharynx Normal Neck: Full Range of Motion, Normal Inspection, Non Tender, Supple, Carotid Bruit Respiratory: Chest Non Tender, Lungs Clear, Normal Breath Sounds, No Accessory Muscle Use, No Respiratory Distress Cardiovascular: Regular Rate, Rhythm, No Edema, No Gallop, No JVD, No Murmur, Normal Peripheral Pulses Gastrointestinal: Normal Bowel Sounds, No Organomegaly, No Pulsatile Mass, Non Tender, Soft Back: Normal Inspection, No CVA Tenderness, No Vertebral Tenderness Extremity: Normal Capillary Refill, Normal Inspection, Normal Range of Motion, Non Tender, No Calf Tenderness, No Pedal Edema Neurologic/Psychiatric: Alert, Oriented x3, No Motor/Sensory Deficits, Normal Mood/Affect, gold prospector II-XII Norm as Tested, Abnormal Gait, Aphasia (partial with r eceptive aphasia), Motor Weakness (generalized lower legs) Skin: Normal Color, Warm/Dry Lymphatic: No Adenopathy Results/Procedures Lab Patient resulted labs reviewed. FIM Transfers Therapy Code Descriptions/Definitions Functional [place] Measure: 0=Not Assessed/NA 4=Minimal Assistance 1=Total Assistance 5=Supervision or Setup 2=Maximal Assistance 6=Modified [place] 3=Moderate Assistance 7=Complete IndependenceSCALE: Activities may be completed with or without assistive devices. 7-Cswzvpfwvm-duugcyb completes the activity by him/herself with no assistance from a helper. 5-Set-up or Clean-up Assistance-helper sets up or cleans up; patient completes activity. [place] assists only prior to or following the activity. 4-Supervision or Touching Assistance-helper provides verbal cues and/or touching/steadying and/or contact guard assistance as patient completes activity. Assistance may be provided throughout the activity or intermittently. 3-Partial/Moderate Assistance-helper does LESS THAN HALF the effort. [place] lifts, holds or supports trunk or limbs, but provides less than half the effort. 2-Substantial/Maximal Assistance-helper does MORE THAN HALF the effort. [place] lifts or holds trunk or limbs and provides more than half the effort. 8-Nvezntwun-tatvrl does ALL the effort. Patient does none of the effort to complete the activity. Or, the assistance of 2 or more helpers is required for the patient to complete the activity. If activity was not attempted, code reason: 7-Patient Refused. 9-Not Applicable-not attempted and the patient did not perform the activity before the current illness, exacerbation or injury. 10-Not Attempted due to Environmental Limitations-(lack of equipment, weather restraints, etc.). 88-Not Attempted due to Medical Conditions or Safety Concerns. Roll Left to Right (QC): 6 Sit to Lying (QC): 6 Sit to Stand (QC): 6 Chair/Tel-sq-Acqrc Xfer(QC): 6 Car Transfer (QC): 6 Gait Training Does the Patient Walk?: Yes Distance: 150' x2 Walk 10 feet (QC): 6 Walk 50 ft with 2 Turns(QC): 6 Walk 150 ft (QC): 6 Walking 10ft/uneven surface-QC: 4 Gait Persons Needed: 1 Gait Assistive Device: None Wheelchair Training Does the Pt Use a Wheelchair?: No Wheel 50 ft with 2 turns (QC): 9 Wheel 150 ft (QC): 9 Stair Training Stair Training: Handrails/: 1 handrail #of Steps: 12 1 Step (curb) (QC): 6 4 Steps (QC): 6 12 Steps (QC): 6 Stairs: Pattern: Reciprocal Balance Picking up an Object (QC): 4 ADL-Treatment Eating (QC): 6 Oral Hygiene (QC): 7 Shower/Bathe Self (QC): 4 (SBA, pt stands in shower to complete, all tasks with IND.) Upper Body Dressing (QC): 6 (IND in bathroom. ) Lower Body Dressing (QC): 4 (SUP on stool, good balance noted.) On/Off Footwear (QC): 4 (SUP) Toileting Hygiene (QC): 4 (SUP, completes in shower with IND.) Toilet Transfer (QC): 6 (IND.) Assessment/Plan Assessment and Plan Assess & Plan/Chief Complaint Assessment: CVA w/aphasia and receptive aphasia New onset AF s/p tPA 11/22/19 no OAC until 12/06/19 HTN HLP Obesity [place] Plan: IRF protocol ASA Statin Monitor closely 11/30/19: In patient rehab protocol Cardiology appreciated Fall risk prevention 12/01/19: Improved cognition Continue intensive therapy DC Friday12/02/19: Outpatient PT at DC Monitor BP 12/03/19: DC home Friday (1) CVA (cerebral vascular accident) (2) Atrial fibrillation (3) Hypertension (4) Hyperlipemia (5) Aphasia (6) Receptive aphasia (7) Confusion (8) Presbycusis of both ears (9) Risk for falls (10) Received intravenous tissue plasminogen activator (tPA) in emergency department KERMIT EVANS DO Dec 03, 2019 09:35
--- NOTE | 2019-12-03 10:28 | Cardiology Progress Note ---
Subjective Date Seen by Provider: Dec 03, 2019 Time Seen by Provider: 10:28 Subjective/Events-last exam Patient was seen and evaluated, feeling better, her speech is better Review of Systems General: No Chills, No Night Sweats, No Fatigue, No Malaise, No Appetite, No Other HEENT: No Head Aches, No Visual Changes, No Eye Pain, No Ear Pain, No Dysphasia, No Sinus Congestion, No Post Nasal Drip, No Sore Throat, No Other Pulmonary: No Dyspnea, No Cough, No Pleuritic Chest Pain, No Other Cardiovascular: No: Chest Pain, Palpitations, Orthopnea, Paroxysmal Noc. Dyspnea, Edema, Lt Headedness, Other Objective-Cardiology Exam Last Set of Vital Signs Vital Signs 12/03/19 12/03/19 12/03/19 05:14 09:00 09:22 Temp 36.2 Pulse 76 Resp 20 B/P (MAP) 131/61 (84) Pulse Ox 97 O2 Delivery Room Air Capillary Refill : Less Than 3 Seconds I&O Intake and Output 12/03/19 00:00 Intake Total 1310 ml Balance 1310 ml Intake Oral 1310 ml # Voids 6 # Bowel Movements 1 General: Alert, Oriented X3, Cooperative HEENT: Atraumatic, PERRLA Neck: Supple, No JVD, No Thyromegaly Lungs: Clear to Auscultation, Normal Air Movement Heart: Normal S1, Normal S2, No Murmurs, Other (bradycardic) Abdomen: Normal Bowel Sounds, Soft, No Tenderness, No Hepatosplenomegaly, No Masses Extremities: No Clubbing, No Cyanosis, No Edema, Normal Pulses, No Tenderness/Swelling Skin: No Rashes, No Significant Lesion Neuro: Normal Gait, Other (expressive aphasia) Psych/Mental Status: Mental Status NL, Mood NL A/P-Cardiology Admission Diagnosis CVA PAF HTN HLP Assessment/Plan CVA, 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 Currently maintained on ASA. Continues to have expressive aphasia, continue with PT/OT PAF, diagnosed after CVA. Maintained on Sotalol and currently in SR. Will place patient on telemetry and continue to monitor. Will need to start OAC after December 06, 2019, start Lovenox if patient goes back into atrial fibrillation before then. HTN, controlled, continue to monitor. HLP- maintained on statin. Clinical Quality Measures DVT/VTE Risk/Contraindication: Risk Factor Score Per Nursin RFS Level Per Nursing on Admit: 4+=Very High Contraindications-Pharm: Other *list below* Other: tpa 11/22/19 JENS LOGAN MD Dec 03, 2019 10:28
--- NOTE | 2019-12-03 11:31 | Speech Therapy Daily Note ---
Speech Daily Progress Note Subjective Date Seen by Provider: Dec 03, 2019 Time Seen by Provider: 00:30 Patient was sitting in her recliner relaxing following her PT session. Objective Patient completed matching cards and independently reading the words on the cards with minimal prompts at 90%. Assessment Assessment Current Status: Fair Progress Treatment Plan Discontinue ST, Goals Met Speech Short Term Goals Short Term Goals Short Term Goals 1) Patient will complete memory tasks related to her daily needs at 80% or greater with minimal cues. 2) Patient will complete problem solving tasks related to her daily needs at 80% or greater with minimal cues. 3) Patient will complete safety awareness tasks related to her daily needs at 80% or greater with minimal cues. 4) Patient will complete confrontational naming tasks at 80% or greater with minimal cues. Speech Usp Goals Vice President Global Advertising Sales Goals Patient will improve her cognitive-communication skills in order to communicate her wants/needs effectively. Speech-Plan Patient/Family Goals Patient/Family Goals: Patient is scheduled for return home tomorrow where she lives with her . Treatment Plan Speech Therapy Treatment Plan: Discontinue ST, Goals Met Treatment Duration: Dec 15, 2019 Frequency: 4 times per week Estimated Hrs Per Day: .5 hour per day Rehab Potential: Fair Barriers to Learning: Patient's recent CVA with receptive and expressive aphasia Pt/Family Agrees to Plan: Yes Safety Risks/Education Teaching Recipient: Patient Teaching Methods: Demonstration, Discussion Response to Teaching: Verbalize Understanding, Return Demonstration Education Topics Provided: Continued safety within her room and communication of wants/needs Time Speech Therapy Time In: 10:00 Speech Therapy Time Out: 10:30 Total Billed Time: 30 Billed Treatment Time 1, SLTS No QUALITY CODES: EXPRESSION OF WANTS/NEEDS: 1 UNDERSTANDING OF VERBAL CONTENT: 3 BRIEF INTERVIEW MENTAL STATUS: YES REPETITION OF 3 WORDS: 3 TEMPORAL ORIENTATION: YEAR: CORRECT, MONTH: CORRECT, DAY: CORRECT RECALL OF SOCK: YES WITH CUE, COLOR: NO, BED: NO MENTAL ABILITY/RECALL: SEASON, THAT SHE IS IN THE [facility] Dec 03, 2019 11:31
--- NOTE | 2019-12-03 11:53 | Physical Therapy Daily Note ---
PT Daily Note-Current Subjective Pt. smiles and is agreeable to Rx however is unable to effectively communicate and has great difficulty following commands this date. Pain Location: No Pain Reported Mental Status needs repeated demonstration for all activities and tasks. appears globally aphasic : mixed unrelated verbal responses and much laughter when asked a question or asked to perform a task. Transfers SCALE: Activities may be completed with or without assistive devices. 6-Gsvezcpdyf-ifgrdpg completes the activity by him/herself with no assistance from a helper. 5-Set-up or Clean-up Assistance-helper sets up or cleans up; patient completes activity. [place] assists only prior to or following the activity. 4-Supervision or Touching Assistance-helper provides verbal cues and/or touching/steadying and/or contact guard assistance as patient completes activity. Assistance may be provided throughout the activity or intermittently. 3-Partial/Moderate Assistance-helper does LESS THAN HALF the effort. [place] lifts, holds or supports trunk or limbs, but provides less than half the effort. 2-Substantial/Maximal Assistance-helper does MORE THAN HALF the effort. [place] lifts or holds trunk or limbs and provides more than half the effort. 7-Gubqznyvw-xosbrj does ALL the effort. Patient does none of the effort to complete the activity. Or, the assistance of 2 or more helpers is required for the patient to complete the activity. If activity was not attempted, code reason: 7-Patient Refused. 9-Not Applicable-not attempted and the patient did not perform the activity before the current illness, exacerbation or injury. 10-Not Attempted due to Environmental Limitations-(lack of equipment, weather restraints, etc.). 88-Not Attempted due to Medical Conditions or Safety Concerns. Roll Left & Right (QC): 6 Sit to Lying (QC): 6 Lying to Sitting/Side of Bed(Q: 6 Sit to Stand (QC): 6 Chair/Qqk-st-Srrrw Xfer(QC): 6 Car Transfer (QC): 6 Weight Bearing Full Weight Bearing Full Weight Bearing Gait Training Does the Patient Walk?: Yes Walk 10 feet (QC): 6 Walk 50 ft with 2 Turns(QC): 6 Walk 150 ft (QC): 6 Walking 10ft/uneven surface-QC: 6 Gait Persons Needed: 0 Gait Assistive Device: None Stair Training Stair Training: Handrails/: 1 handrail #of Steps: 12 1 Step (curb) (QC): 6 4 Steps (QC): 6 12 Steps (QC): 6 Stairs: Pattern: Reciprocal Balance Picking up an Object (QC): 6 Exercises Supine Ex: Bridging, Rolling, Heel Slides, Scooting, Straight leg raise, Hip abd/add Supine Reps: 20 NuStep Minutes: 10 NuStep Workload: 3 Treatments tall kneeling, quadruped and floor TRF all with with much explanation and demonstration as well as tactile reinforcement to follow task Assessment Current Status: Good Progress PT Short Term Goals Short Term Goals Time Frame: Dec 06, 2019 Roll Left & Right: 6 Sit to lyin Lying to sitting on side of be: 6 Sit to stand: 6 Chair/ixf-mh-syhas transfer: 6 Toilet transfer: 6 Car transfer: 5 Walk 10 feet: 5 Walk 50 feet with two turns: 5 Walk 150 feet: 5 1 step (curb): 5 4 steps: 5 PT Alf Goals Farm Machinery Set Up Mechanic Goals PT Farm Machinery Set Up Mechanic Goals Time Frame: Dec 13, 2019 Roll Left & Right (QC): 6 Sit to Lying (QC): 6 Lying-Sitting on Side/Bed(QC): 6 Sit to Stand (QC): 6 Chair/Czv-of-Jbbkt Xfer(QC): 6 Toilet Transfer (QC): 6 Car Transfer (QC): 6 Does the Patient Walk: Yes Walk 10 feet (QC): 6 Walk 50ft with 2 Turns (QC): 6 Walk 150 ft (QC): 6 Walking 10ft on Uneven Surface: 6 1 Step (curb) (QC): 6 4 Steps (QC): 6 12 Steps (QC): 6 Picking up an Object (QC): 6 Does the Pt use WC or Scooter?: No Wheel 50 feet with 2 turns (QC: 9 Wheel 150 feet: 9 PT Plan Treatment/Plan Treatment Plan: Continue Plan of Care Treatment Plan: Education, Functional Activity [place], Functional Strength, Gait, Safety, Therapeutic Exercise, Transfers Treatment Duration: Dec 13, 2019 Frequency: At least 5 of 7 days/Wk (IRF) Estimated Hrs Per Day: 1 hour per day Patient and/or Family Agrees t: Yes Safety Risks/Education Patient Education: Gait Training, Transfer Techniques, Steps, Correct Positioning, Disease Process, Safety Issues Teaching Recipient: Patient Teaching Methods: Demonstration, Discussion Response to Teaching: Unable to Return Demonstration (needs much reinforcement), Unable to Comprehend, Reinforcement Needed Time/GCodes Time In: 1100 Time Out: 1200 Total Billed Treatment Time: 60 Total Billed Treatment 1,GT20m,FA25m,EX15m SAVITA BA CHILD CARE LEADER Dec 03, 2019 11:53
--- NOTE | 2019-12-03 12:06 | Occupational Ther Daily Note ---
OT Current Status-Daily Note Subjective Pt seen in recliner. Pt alert, denies ADLs stating she has already showered/ dressed. Per clinical judgment and pt report, pt is SUP-IND with all these tasks. Pt agrees to executive functioning tasks. ADL-Treatment Therapy Code Descriptions/Definitions Functional [place] Measure: 0=Not Assessed/NA 4=Minimal Assistance 1=Total Assistance 5=Supervision or Setup 2=Maximal Assistance 6=Modified [place] 3=Moderate Assistance 7=Complete IndependenceSCALE: Activities may be completed with or without assistive devices. 2-Icftayrcbs-cwnmlgi completes the activity by him/herself with no assistance from a helper. 5-Set-up or Clean-up Assistance-helper sets up or cleans up; patient completes activity. [place] assists only prior to or following the activity. 4-Supervision or Touching Assistance-helper provides verbal cues and/or touching/steadying and/or contact guard assistance as patient completes activity. Assistance may be provided throughout the activity or intermittently. 3-Partial/Moderate Assistance-helper does LESS THAN HALF the effort. [place] lifts, holds or supports trunk or limbs, but provides less than half the effort. 2-Substantial/Maximal Assistance-helper does MORE THAN HALF the effort. [place] lifts or holds trunk or limbs and provides more than half the effort. 5-Atbicnjef-xqrorl does ALL the effort. Patient does none of the effort to complete the activity. Or, the assistance of 2 or more helpers is required for the patient to complete the activity. If activity was not attempted, code reason: 7-Patient Refused. 9-Not Applicable-not attempted and the patient did not perform the activity before the current illness, exacerbation or injury. 10-Not Attempted due to Environmental Limitations-(lack of equipment, weather restraints, etc.). 88-Not Attempted due to Medical Conditions or Safety Concerns. Eating (QC): 6 (per clinical judgment and pt report) Oral Hygiene (QC): 6 (per clinical judgment and pt report) Bathing Location: L Arm, R Arm, L Upper Leg, R Upper Leg, L Lower Leg (including foot), R Lower Leg (including foot), Chest, Abdomen, Buttocks, Perineal Area Shower/Bathe Self (QC): 4 (SUP all tasks per clinical judgment and pt report) Upper Body Dressing (QC): 6 (IND) Lower Body Dressing (QC): 6 (IND per clinical judgment and pt report) On/Off Footwear: 6 (IND per clinical judgment and pt report) Toileting Hygiene (QC): 6 (IND per clinical judgment and pt report) Toilet Transfer (QC): 4 (SUP per clinical judgment and pt report) Other Treatment Pt denies ADLs, though QCs gathered per clinical judgment and pt report. Pt completes 3 direction following tasks written on paper. Pt scans environment through ARU for specific items (elevator, exit sign, specific rooms/ items). Pt requires min-max cueing for finding items and cues for problem solving, visualization, and visual scanning patterns. Pt returns to room, completing directional tasks with colors. Pt requires mod-max cues fro these items. With the use of measuring cups and spoons, pt able to gather 100% of cups written on paper and ~75% tablespoons vs teaspoons. Pt able to complete moderately complex addition (1 1/4 cup, 1 1/2 tbsp), though unable to complete a 3/4 cup with direction. Pt completes meal prep activity, gathering supplies and completing measuring different items/ following recipe. Pt requires cues for task termination upon measuring ~1/4 of items, the other 3/4 pt completes with minimal cues to SBA. Pt ambulates through halls with SBA/ no LOB, returns to room with all needs met, call light in reach, chair alarm on. Education OT Patient Education: Progress toward Goal/Update tx plan, Purpose of t x/functional activities, Other (scanning, problem solving, direction/ step by step techniques) Teaching Recipient: Patient Teaching Methods: Demonstration, Discussion Response to Teaching: Verbalize Understanding, Return Demonstration, Reinforcement Needed OT Intermediate Goals Choir Leader Goals Time Frame: Dec 13, 2019 Eating (QC): 6 Oral Hygiene (QC): 6 Toileting Hygiene (QC): 6 Shower/Bathe Self (QC): 6 Upper Body Dressing (QC): 6 Lower Body Dressing (QC): 6 On/Off Footwear (QC): 6 Additional Goals: 1-Demonstrate ADL Tasks, 2-Verbalize Understanding, 3- ImproveStrength/[place] 1=Demonstrate adherence to instructed precautions during ADL tasks. 2=Patient will verbalize/demonstrate understanding of assistive devices/modifications for ADL. 3=Patient will improve strength/tolerance for activity to enable patient to perform ADL's. OT Education/Plan Problem List/Assessment Assessment: Decreased Activ Tolerance, Decreased Safety Aware, Impaired I ADL's Discharge Recommendations Plan/Recommendations: Continue POC Therapy Discharge Recommendati: Intermittent Supervision, Home & Family Treatment Plan/Plan of Care Treatment,Training & Education: Yes Patient would benefit from OT for education, treatment and training to promote independence in ADL's, mobility, safety and/or upper extremity function for ADL's. Plan of Care: ADL Retraining, Cognitive Retraining, Functional Mobility Treatment Duration: Dec 13, 2019 Frequency: At least 5 of 7 days/Wk (IRF) Estimated Hrs Per Day: 1.5 hours per day Agreement: Yes Rehab Potential: Fair Time/GCodes Start Time: 09:00 Stop Time: 10:00 Total Time Billed (hr/min): 60 Billed Treatment Time 1, FA 4 (60) AV ROSSI OTR Dec 03, 2019 12:06
--- NOTE | 2019-12-03 14:39 | NUR ---
CM/SS DISCHARGE Patient is packed and ready for discharge home tomorrow. IMM2 presented, reviewed, signed, charted. OP ST: Final orders provided to [facility] speech therapy services. Spouse here with patient, there are no other discharge planning needs at this time.
--- NOTE | 2019-12-03 14:43 | Therapy Group Daily Note ---
Therapy Daily Group Note Patient Education Topic Other List Below (TRF safety and techniques, bed and chair, rehab orientation) Exercises LE Seated Exercise, UE Exercise Session Ratio (pt:therapist): 4:1 Goal of Session: Education on ARU Expectations, UE/LE Strengthing, Safety with Transfers Goal Met for this Session: Yes Pt Benefit of Group: Contributions to Others, Increased Functional Safety, Increased Functional Strength, Socialization Other/Notes Pt. attended PT OT group session this date. Pt. ambulated SBA to from session. Pts. all wearing mask and spaced away from one another. Pt.was social introducing herself with assist of and therapists. Pts. were educated on the purpose, goals and expectations of Rehab. Pts. participated in seated U&L extremity exercises . Demonstration and education was done using hospital bed to enlighten pts on ways to be more mobile in bed, scoot up efficiently, roll left and right, use HOB and foot up features and how to approach bed after gait etc. Reclining chair demo also done teaching positioning and comfort features as well as safe sit to stand techniques. Pts. enjoyed sharing with others about ways to stay positive and notice the positive things about yourse lf. Again pts assisting her. Pt.to room to bed after group, alcocer at hand, needs met. Start Time: 13:00 Stop Time: 14:15 Total Billed Treatment Time: 75 Total Billed Treatment 1,GRP SAVITA BA EXECUTIVE COMMUNITY PLANNING Dec 03, 2019 14:42
[2019-12-03 16:00] VITALS: BP 172/72
[2019-12-04 05:13] VITALS: BP 150/68
[2019-12-04] MEDS: OMEGA 3 (FISH OIL) 1000 MG CAP PO SCH (08:28)
[2019-12-04] MEDS: ASPIRIN E.C. 81 MG (ECOTRIN) TAB PO SCH (08:28)
[2019-12-04] MEDS: lisINopril 10 MG (PRINIVIL) TABLET PO SCH (08:28)
[2019-12-04] MEDS: SOTALOL 80 MG (BETAPACE) TAB PO SCH ×2 (08:28→09:00)
[2019-12-04] MEDS: DOCUSATE SODIUM 100 MG (COLACE) CAP PO SCH (09:00)
[2019-12-04] MEDS: polyethylene glycoL POWDER 17 GM (MIRALAX) PACK PO SCH (09:00)
[2019-12-04] MEDS: SENNA W/DOCUSATE (SENOKOT S) TABLET PO SCH (09:00)
--- NOTE | 2019-12-04 10:22 | Cardiology Progress Note ---
Subjective Date Seen by Provider: Dec 04, 2019 Time Seen by Provider: 10:22 Subjective/Events-last exam Patient is sitting in a chair, feeling better. No new complaint Review of Systems General: No Chills, No Night Sweats, No Fatigue, No Malaise, No Appetite, No Other HEENT: No Head Aches, No Visual Changes, No Eye Pain, No Ear Pain, No Dysphasia, No Sinus Congestion, No Post Nasal Drip, No Sore Throat, No Other Pulmonary: No Dyspnea, No Cough, No Pleuritic Chest Pain, No Other Cardiovascular: No: Chest Pain, Palpitations, Orthopnea, Paroxysmal Noc. Dyspnea, Edema, Lt Headedness, Other Objective-Cardiology Exam Last Set of Vital Signs Vital Signs 12/04/19 12/04/19 12/04/19 05:13 08:27 08:28 Temp 36.0 Pulse 72 Resp 18 B/P (MAP) 150/68 (95) Pulse Ox 98 O2 Delivery Room Air Capillary Refill : Less Than 3 Seconds I&O Intake and Output 12/04/19 00:00 Intake Total 930 ml Balance 930 ml Intake Oral 930 ml # Voids 4 General: Alert, Oriented X3, Cooperative HEENT: Atraumatic, PERRLA Neck: Supple, No JVD, No Thyromegaly Lungs: Clear to Auscultation, Normal Air Movement Heart: Normal S1, Normal S2, No Murmurs, Other (bradycardic) Abdomen: Normal Bowel Sounds, Soft, No Tenderness, No Hepatosplenomegaly, No Masses Extremities: No Clubbing, No Cyanosis, No Edema, Normal Pulses, No Tenderness/Swelling Skin: No Rashes, No Significant Lesion Neuro: Normal Gait, Other (expressive aphasia) Psych/Mental Status: Mental Status NL, Mood NL A/P-Cardiology Admission Diagnosis CVA PAF HTN HLP Assessment/Plan CVA, 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 Currently maintained on ASA. Continues to have expressive aphasia, continue with PT/OT PAF, diagnosed after CVA. Maintained on Sotalol and currently in SR. Will place patient on telemetry and continue to monitor. Will need to start OAC after December 06, 2019, start Lovenox if patient goes back into atrial fibrillation before then. HTN, controlled, continue to monitor. HLP- maintained on statin. Clinical Quality Measures DVT/VTE Risk/Contraindication: Risk Factor Score Per Nursin RFS Level Per Nursing on Admit: 4+=Very High Contraindications-Pharm: Other *list below* Other: tpa 11/22/19 JENS LOGAN MD Dec 04, 2019 10:22
--- NOTE | 2019-12-04 11:04 | NUR ---
Patient discharged accompanied by via wheelchair to private vehicle. Discharge instructions explained, patient and verbalized understanding. Personal belongings sent with patient.
--- NOTE | 2019-12-04 12:14 | Discharge Summary ---
Diagnosis/Chief Complaint Date of Admission Nov 29, 2019 at 13:13 Date of Discharge Discharge Date: Dec 04, 2019 Discharge Diagnosis Assessment: CVA w/aphasia and receptive aphasia New onset AF s/p tPA 11/22/19 no OAC until 12/06/19 HTN HLP Obesity UPPER MATTAPONI Plan: IRF protocol ASA Statin Monitor closely 11/30/19: In patient rehab protocol Cardiology appreciated Fall risk prevention 12/01/19: Improved cognition Continue intensive therapy DC Friday12/02/19: Outpatient PT at DC Monitor BP 12/03/19: DC home Friday (1) CVA (cerebral vascular accident) (2) Atrial fibrillation (3) Hypertension (4) Hyperlipemia (5) Aphasia (6) Receptive aphasia (7) Confusion (8) Presbycusis of both ears (9) Risk for falls (10) Received intravenous tissue plasminogen activator (tPA) in emergency department Discharge Summary Discharge Physical Examination Allergies: Coded Allergies: Sulfa (Sulfonamide Antibiotics) (Verified Allergy, Unknown, 11/29/19) clindamycin (Verified Allergy, Unknown, 11/29/19) Vitals & I&Os Vital Signs Date Time Temp Pulse Resp B/P (MAP) Pulse Ox O2 Delivery O2 Flow Rate FiO2 12/04/19 10:30 65 12/04/19 09:00 Room Air 12/04/19 08:27 98 12/04/19 05:13 36.0 18 150/68 (95) Hospital Course Was the Problem List Reviewed?: Yes Patient had a brief hospital course. Admitted from [facility] after tPa given in ER for acute CVA from new onset AF. Aphasia was the residual and OT and ST aggressively worked with her to obtain some improvement of that deficit. Labs remained stable and Cardiology monitored patient closely during stay. Patient had no decompensation and was deemed stable for DC with who will provide 07/10 supervision. OAC will be started Friday. Labs (last 24 hrs) Laboratory Tests 11/30/19 05:27: White Blood Count 5.3, Red Blood Count 3.89L, Hemoglobin 12.6, Hematocrit 36, Mean Corpuscular Volume 94, Mean Corpuscular Hemoglobin 32, Mean Corpuscular Hemoglobin Concent 35, Red Cell Distribution Width 13.4, Platelet Count 229, Mean Platelet Volume 8.9, Neutrophils (%) (Auto) 59, Lymphocytes (%) (Auto) 25, Monocytes (%) (Auto) 12, Eosinophils (%) (Auto) 4, Basophils (%) (Auto) 0, N eutrophils # (Auto) 3.1, Lymphocytes # (Auto) 1.3, Monocytes # (Auto) 0.6, Eosinophils # (Auto) 0.2, Basophils # (Auto) 0.0, Sodium Level 140, Potassium Level 3.6, Chloride Level 108H, Carbon Dioxide Level 22, Anion Gap 10, Blood Urea Nitrogen 21H, Creatinine 0.78, Estimat Glomerular Filtration Rate > 60, BUN/Creatinine Ratio 27, Glucose Level 103, Calcium Level 8.9, Corrected Calcium 9.1, Total Bilirubin 1.2H, Aspartate Amino Transf (AST/SGOT) 26, Alanine Aminotransferase (ALT/SGPT) 18, Alkaline Phosphatase 60, Total Protein 6.4, Albumin 3.7 Pending Labs Laboratory Tests 11/30/19 05:27: White Blood Count 5.3, Red Blood Count 3.89, Hemoglobin 12.6, Hematocrit 36, Mean Corpuscular Volume 94, Mean Corpuscular Hemoglobin 32, Mean Corpuscular Hemoglobin Concent 35, Red Cell Distribution Width 13.4, Platelet Count 229, Mean Platelet Volume 8.9, Neutrophils (%) (Auto) 59, Lymphocytes (%) (Auto) 25, Monocytes (%) (Auto) 12, Eosinophils (%) (Auto) 4, Basophils (%) (Auto) 0, Neutrophils # (Auto) 3.1, Lymphocytes # (Auto) 1.3, Monocytes # (Auto) 0.6, Eosinophils # (Auto) 0.2, Basophils # (Auto) 0.0, Sodium Level 140, Potassium Level 3.6, Chloride Level 108, Carbon Dioxide Level 22, Anion Gap 10, Blood Urea Nitrogen 21, Creatinine 0.78, Estimat Glomerular Filtration Rate > 60, BUN/Creatinine Ratio 27, Glucose Level 103, Calcium Level 8.9, Corrected Calcium 9.1, Total Bilirubin 1.2, Aspartate Amino Transf (AST/SGOT) 26, Alanine Aminotransferase (ALT/SGPT) 18, Alkaline Phosphatase 60, Total Protein 6.4, Albumin 3.7 Discharge Home Medications: Active Scripts Active Eliquis (Apixaban) 5 Mg Tablet 5 Mg PO BID Start on 12/06/19 Aspirin EC (Aspirin) 81 Mg Tablet.dr 81 Mg PO DAILY Lisinopril 10 Mg Tablet 10 Mg PO DAILY Sotalol (Sotalol HCl) 80 Mg Tablet 40 Mg PO DAILY Lipitor (Atorvastatin Calcium) 40 Mg Tablet 40 Mg PO DAILY Reported Cod Liver Oil Softgel (Vit A & D3 in Cod Liver Oil) 1 Each Capsule 1 Each PO DAILY Coral 3 Fish Oil Softgel (Coral-3 Fatty Acids/Fish Oil) 1 Each Capsule. 1 Each PO DAILY Instructions to patient/family Please see electronic discharge instructions given to patient. Diagnosis/Problems Diagnosis/Problems (1) CVA (cerebral vascular accident) (2) Atrial fibrillation (3) Hypertension (4) Hyperlipemia (5) Aphasia (6) Receptive aphasia (7) Confusion (8) Presbycusis of both ears (9) Risk for falls (10) Received intravenous tissue plasminogen activator (tPA) in emergency department Clinical Quality Measures DVT/VTE Risk/Contraindication: Risk Factor Score Per Nursin RFS Level Per Nursing on Admit: 4+=Very High Contraindications-Pharm: Other *list below* Other: tpa 11/22/19 KERMIT EVANS DO Dec 04, 2019 12:14
--- NOTE | 2019-12-06 08:41 | Therapy Team Discharge Summary ---
Therapy Discharge Summary Discharge Recommendations Date of Discharge Dec 04, 2019 at 11:04 Physical Therapy Patient came to rehab following a CVA. Upon evaluation patient is independent with bed mobility and transfers, car transfer SBA, ambulates 150' without an assistive device with SBA, and could go up and down 4 steps using 2 handrails with SBA. Patient has been performing bed mobility and transfer training, balance and endurance training, functional strengthening, stair training, gait training, and education. Patient has made good progress and has met all of her intermission coordinator goals. Now, patient is independent with bed mobility and transfers, independent with car transfer, ambulates 150' with independence (including 50' with at least 2 turns of 90 degrees and 10' over an uneven surface), and can go up and down 12 steps using 1 handrail with independence, and can waste picker an object from the floor with independence. Patient was discharged from this facility and will be discharged from PT at this time. Occupational Therapy Decreased Activ Tolerance, Decreased Safety Aware, Impaired I ADL's PT Retirement Goals Airport Operations Duty Manager Goals PT Retirement Goals Time Frame: Dec 13, 2019 Roll Left to Right (QC): 6 Sit to Lying (QC): 6 Lying-Sitting on Side/Bed(QC): 6 Sit to Stand (QC): 6 Chair/Tqz-lm-Mxjma Xfer(QC): 6 Car Transfer (QC): 6 Does the Patient Walk: Yes Walk 10 feet (QC): 6 Walk 10ft-Uneven Surface(QC): 6 Walk 50ft with 2 Turns (QC): 6 Walk 150 ft (QC): 6 Does the Pt use WC or Scooter?: No Wheel 50 feet with 2 turns (QC: 9 1 Step (curb) (QC): 6 4 Steps (QC): 6 12 Steps (QC): 6 Picking up an Object (QC): 6 OT Retirement Goals Retirement Goals Time Frame: Dec 13, 2019 Eating (QC): 6 Oral Hygiene (QC): 6 Shower/Bathe Self (QC): 6 Upper Body Dressing (QC): 6 Lower Body Dressing (QC): 6 On/Off Footwear (QC): 6 Toileting Hygiene (QC): 6 Toilet/Commode Transfer (QC): 6 Additional Goals: 1-Demonstrate ADL Tasks, 2-Verbalize Understanding, 3- ImproveStrength/[place] 1=Demonstrate adherence to instructed precautions during ADL tasks. 2=Patient will verbalize/demonstrate understanding of assistive devices/modifications for ADL. 3=Patient will improve strength/tolerance for activity to enable patient to perform ADL's. Speech Airport Operations Duty Manager Goals Retirement Goals Patient will improve her cognitive-communication skills in order to communicate her wants/needs effectively. BRIANNA STATON PT Dec 06, 2019 08:41
--- NOTE | 2019-12-06 08:47 | Therapy Team Discharge Summary ---
Therapy Discharge Summary Discharge Recommendations Date of Discharge Dec 04, 2019 at 11:04 Occupational Therapy Decreased Activ Tolerance, Decreased Safety Aware, Impaired I ADL's Speech-Language Pathology Patient was admitted to the ARU s/p CVA which she suffered moderate receptive and expressive aphasia. Patient received ST services for the aphasia with noted progress on the receptive side and mild improvement on the expressive side. Patient was able to read well which enabled her to express her wants/needs somewhat better. Patient discharged to her home with her of 50 years on 12/04/2019. PT Vice President Of Engineering Goals Vice President Of Engineering Goals PT Long-Term Goals Time Frame: Dec 13, 2019 Roll Left to Right (QC): 6 Sit to Lying (QC): 6 Lying-Sitting on Side/Bed(QC): 6 Sit to Stand (QC): 6 Chair/Ntd-uq-Ngwkj Xfer(QC): 6 Car Transfer (QC): 6 Does the Patient Walk: Yes Walk 10 feet (QC): 6 Walk 10ft-Uneven Surface(QC): 6 Walk 50ft with 2 Turns (QC): 6 Walk 150 ft (QC): 6 Does the Pt use WC or Scooter?: No Wheel 50 feet with 2 turns (QC: 9 1 Step (curb) (QC): 6 4 Steps (QC): 6 12 Steps (QC): 6 Picking up an Object (QC): 6 OT Long-Term Goals Long-Term Goals Time Frame: Dec 13, 2019 Eating (QC): 6 Oral Hygiene (QC): 6 Shower/Bathe Self (QC): 6 Upper Body Dressing (QC): 6 Lower Body Dressing (QC): 6 On/Off Footwear (QC): 6 Toileting Hygiene (QC): 6 Toilet/Commode Transfer (QC): 6 Additional Goals: 1-Demonstrate ADL Tasks, 2-Verbalize Understanding, 3- ImproveStrength/[place] 1=Demonstrate adherence to instructed precautions during ADL tasks. 2=Patient will verbalize/demonstrate understanding of assistive devices/modifications for ADL. 3=Patient will improve strength/tolerance for activity to enable patient to perform ADL's. Speech Long-Term Goals Vice President Of Engineering Goals Patient will improve her cognitive-communication skills in order to communicate her wants/needs effectively. ANNE MUHAMMAD Dec 06, 2019 08:47
--- NOTE | 2019-12-06 11:36 | Therapy Team Discharge Summary ---
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 Upon admission, pt required SBA with showeirng and LB dressing, but was s/u to IND with all other tasks. Pt and OT worked towards higher fx IND through fx activity, problem solving, 1 and 2 step directions, fx ambulation and safety training. Pt does not meet LTGs, limited by impulsiveness and aphasia. Pt d/c's with all ADLs SUP to IND without use of AD/ AE. Pt d/c's home with with d/c of OT at this time. Decreased Activ Tolerance, Decreased Safety Aware, Impaired I ADL's PT Upper Cutter Out Goals Upper Cutter Out Goals PT Upper Cutter Out Goals Time Frame: Dec 13, 2019 Roll Left to Right (QC): 6 Sit to Lying (QC): 6 Lying-Sitting on Side/Bed(QC): 6 Sit to Stand (QC): 6 Chair/Gra-qf-Ejpoj Xfer(QC): 6 Car Transfer (QC): 6 Does the Patient Walk: Yes Walk 10 feet (QC): 6 Walk 10ft-Uneven Surface(QC): 6 Walk 50ft with 2 Turns (QC): 6 Walk 150 ft (QC): 6 Does the Pt use WC or Scooter?: No Wheel 50 feet with 2 turns (QC: 9 1 Step (curb) (QC): 6 4 Steps (QC): 6 12 Steps (QC): 6 Picking up an Object (QC): 6 OT Upper Cutter Out Goals Skilled Nursing Goals Time Frame: Dec 13, 2019 Eating (QC): 6 Oral Hygiene (QC): 6 Shower/Bathe Self (QC): 6 Upper Body Dressing (QC): 6 Lower Body Dressing (QC): 6 On/Off Footwear (QC): 6 Toileting Hygiene (QC): 6 Toilet/Commode Transfer (QC): 6 Additional Goals: 1-Demonstrate ADL Tasks, 2-Verbalize Understanding, 3- ImproveStrength/[place] 1=Demonstrate adherence to instructed precautions during ADL tasks. 2=Patient will verbalize/demonstrate understanding of assistive devices/modifications for ADL. 3=Patient will improve strength/tolerance for activity to enable patient to perform ADL's. Speech Skilled Nursing Goals Skilled Nursing Goals Patient will improve her cognitive-communication skills in order to communicate her wants/needs effectively. AV ROSSI OTR Dec 06, 2019 11:36
== END 2019-12-04 11:04 | disposition home or self-care (01) | DRG 57 ==
PROVIDERS: ADMIT Internal Medicine; ATTEND Internal Medicine
DX: I69.320 Aphasia following cerebral infarction (principal); I48.0 Paroxysmal atrial fibrillation; I10 Essential (primary) hypertension; M06.9 Rheumatoid arthritis, unspecified; K59.00 Constipation, unspecified; E78.00 Pure hypercholesterolemia, unspecified; E78.5 Hyperlipidemia, unspecified; H91.13 Presbycusis, bilateral; Z91.81 History of falling; E66.9 Obesity, unspecified; Z68.35 Body mass index [BMI] 35.0-35.9, adult
CPT/HCPCS: 36415; 80053; 85025; 93005